=== PATIENT | male | born 1955 | race African-American/Black ===

== ENCOUNTER 2024-09-20 12:29 | Outpatient (REF) | payer MEDICARE, SELFPAY ==
--- OUTSIDE RECORDS SUMMARY | 2023-07-24 05:30 | XMS_ITS ---
Author Organization [facility] Address [address] [facility] [address] [place] [address] Care Team Providers Care Outreach Coordinator Name Role Phone Tameka Dias Primary Care Provide r BEULAH Vizcaino Unavailable [phone] Allergies Allergen (clinical drug ingredient) Drug/Non Drug Allergy documented on EMR Reaction Allergy Type Onset Date Status dulaglutide Trulicity nausea and vomiting Drug Allergy Active REASON FOR VISIT 2wk Medications Medication SIG (Take, Route, Frequency, Duration) Notes Start Date End Date Status Zyban 150mg Active Collagenase 250 UNIT/GM 1 application to ulcer Externally Once a day for 30 days 07/19/2023 Active Cadexomer Iodine 0.9 % apply thin layer Externally once daily to ulceration for 30 days 07/10/2023 Active Glucagon 3 MG/DOSE as directed Nasally Not-Taking Amoxicillin-Pot Clavulanate 875-125 MG 1 tablet Orally every 12 hrs for 10 day(s) 06/30/2023 Not-Taking Voltaren 1 % as directed Transdermal Active B Complex + C TR - as directed Orally Active Glucagon Emergency 1 MG/ML as directed Injection Active Loratadine 10 MG 1 tablet Orally Once a day Active Bioflavonoid Products - as directed Orally Active HYDROmorphone HCl 4 MG 1 tablet as neede d Orally every 6 hrs Active Lidocaine-Prilocaine 2.5-2.5 % as directed Externally Activ e Ketoconazole 2 % 1 application Externally Once a day Active Chlorthalidone 25 MG 1 tablet in the mor nahum with food Orally Once a day Active Senna-Docusate Sodium 8.6-50 MG 1 tablet in the evening as needed Orally Once a day Active Lidocaine 1.8 % 1 patch remove after 12 hours Externally Once a day Active Verapamil HCl ER 240 MG 1 capsule Orally Once a day Active Aspirin 81 MG 1 tablet Orally Once a day Active Atorvastatin Calcium 80 MG 1 tablet Orally Once a day Active Sildenafil Citrate 100 MG 1 tablet as ne eded Orally Once a day Active LORazepam 1 MG 1 tablet at bedtime as needed Orally Once a day Active Alpha Lipoic Acid Ac tive Carvedilol 6.25 MG 1 tablet with food Orally Twice a day Active Lisinopril 40 MG 1 tablet Orally Once a day Active Amitriptyline HCl 25 MG 1 tablet at bedt elmer Orally Once a day Active amLODIPine Besylate 5 MG 1 tablet Orally Once a day Active Lantus SoloStar 100 UNIT/ML as directed Subcutaneous Active Apixaban 5 MG as directed Orally Active Diclofenac Sodium 1 % as directed Transdermal Active Gabapentin 800 MG 1 tablet Orally Once a day Active Fluticasone Propionate 50 MCG/ACT 1 spray in each nostril Nasally Once a day Active Acetaminophen 500 MG 1 tablet as needed Orally every 6 hrs Active HumaLOG KwikPen 100 UNIT/ML as directed Subcutaneous Active Spironolactone 25 MG 1 tablet Orally Active Vital Signs Temperature 97.0 degrees Fahrenheit 07/24/19 24 Heart Rate 78 /min 07/24/2023 Respiratory Rate 16 /min 07/24/2023 Height 68 in 07/24/2023 Encounters Encounter Location Date Provider Diagnosis [facility] [address] [facility] [address] [place] [address] 07/24/2023 BEULAH EGAN Plan Of Treatment No Information Progress Notes * Cj FOXDOB:1955 (68 yo M)Acc No.[id number]:07/24/2023 Progress Note Patient: Cj DICKSON Provider: Suresh Anne DPM :1955 A ge:67 Y S ex:Male Date:07/24/2023 Address:[address] [place] [id number] Pcp:Tameka Gavin in Subjective: * Chief Complaints: * 1 . 2wk. * Medical History: T ype 2 diabetes mellitus with diabetic peripheral angiopathy without gangrene, Type 2 diabetes mellitus with hyperglycemia, Coronary atherosclerosis of unspecified type of vessel, [place] or graft, Hypertension, HOCM (hypertrophic obstructive cardiomyopathy), Peripheral artery disease, Diabetes type 2 with atherosclerosis of arteries of extremities, Type 2 diabetes mellitus with cardiac complication, High cholesterol, Diabetes mellitus type 2, uncontrolled, Diabetic neuropathy, Uncontrolled type 2 diabetes mellitus with hypoglycemia without coma, Esophageal reflux, Erectile dysfunction, Tobacco use disorder, Marijuana smoker, Allergic rhinitis, cause unspecified, Osteoarthritis of left shoulder, COVID vaccinated X 4 ([place]). * Surgical History: R ight below knee amputation 11/2018, left SFA to left medial plantar artery bypass with left common femoral endarterectomy, left leg angiogram 08/2019, Multiple endovascular procedures to both lower extremities . * Hospitalization/Major Diagno stic Procedure: r ight BKA 11/2018, left lower extremity Bypass 08/2019. * Family History: F ather: arthritis. M other: hypertension, arthritis. S iblings: Brother-diabetes.? * Social History: A ctive cigarette smoker 1/4 pack per day, rare alcohol use, denies illicit drug use. Lives with . * Medications: T aking Cadexomer Iodine 0.9 % Gel apply thin layer Externally once daily to ulceration , Taking Collagenase 250 UNIT/GM Ointment 1 application to ulcer Externally Once a day , Taking Zyban , Notes to Pharmacist: 150mg, Taking Spironolactone 25 MG Tablet 1 tablet Orally , Taking HumaLOG KwikPen 100 UNIT/ML Solution Pen-injector as directed Subcutaneous , Taking Acetaminophen 500 MG Tablet 1 tablet as needed Orally every 6 hrs , Taking Fluticasone Propionate 50 MCG/ACT Suspension 1 spray in each nostril Nasally Once a day , Taking Gabapentin 800 MG Tablet 1 tablet Orally Once a day , Taking Diclofenac Sodium 1 % Gel as directed Transdermal , Taking Apixaban 5 MG Tablet as directed Orally , Taking Lantus SoloStar 100 UNIT/ML Solution Pen- injector as directed Subcutaneous , Taking amLODIPine Besylate 5 MG Tablet 1 tablet Orally Once a day , Taking Alpha Lipoic Acid , Taking LORazepam 1 MG Tablet 1 tablet at bedtime as needed Orally Once a day , Taking Amitriptyline HCl 25 MG Tablet 1 tablet at bedtime Orally Once a day , Taking Lisinopril 40 MG Tablet 1 tablet Orally Once a day , Taking Carvedilol 6.25 MG Tablet 1 tablet with food Orally Twice a day , Taking Sildenafil Citrate 100 MG Tablet 1 tablet as needed Orally Once a day , Taking Atorvastatin Calcium 80 MG Tablet 1 tablet Orally Once a day , Taking Aspirin 81 MG Tablet Delayed Release 1 tablet Orally Once a day , Taking Verapamil HCl ER 240 MG Capsule Extended Release 24 Hour 1 capsule Orally Once a day , Taking Lidocaine 1.8 % Patch 1 patch remove after 12 hours Externally Once a day , Taking Ketoconazole 2 % Cream 1 application Externally Once a day , Taking Lidocaine-Prilocaine 2.5-2.5 % Cream as directed Externally , Taking HYDROmorphone HCl 4 MG Tablet 1 tablet as needed Orally every 6 hrs , Taking Senna-Docusate Sodium 8.6-50 MG Tablet 1 tablet in the evening as needed Orally Once a day , Taking Chlorthalidone 25 MG Tablet 1 tablet in the morning with food Orally Once a day , Taking Voltaren 1 % Gel as directed Transdermal , Taking Bioflavonoid Products - Tablet as directed Orally , Taking Loratadine 10 MG Tablet 1 tablet Orally Once a day , Taking Glucagon Emergency 1 MG/ML Solution Reconstituted as directed Injection , Taking B Complex + C TR - Tablet Extended Release as directed Orally , Not-Taking Amoxicillin-Pot Clavulanate 875-125 MG Tablet 1 tablet Orally every 12 hrs , Not-Taking Glucagon 3 MG/DOSE Powder as directed Nasally , Medication List reviewed and reconciled with the patient * Allergies: T rulicity: nausea and vomiting. Objective: * Vitals: H t: 68 in, HR:78/min, Temp:97.0F, RR:16/min, Ht-cm: 172.72. Assessment: Plan: * Treatment: * Billing Information: * Visit Code: * Procedure Codes: * Electronic signature of WHITNEY EGAN D.P.M. on 09/20/2024 at 01:12 PM EDT Sign off status: Pending * Provider: Suresh Anne DPM Date: 07/24/2023 Generated for Ana bragg/Evgeny/Josseline on: 09/20/2024 01:12 PM EDT
== END 2024-09-20 12:30 | disposition home or self-care (01) ==
LOC: HO.SH 12:29
PROVIDERS: Visit Provider Internal Medicine
DX: Z01.118 Encounter for examination of ears and hearing with other abnormal findings (principal); H93.293 Other abnormal auditory perceptions, bilateral
CPT/HCPCS: 92557; 92567

== ENCOUNTER 2025-02-05 11:36 | Outpatient (AMB) | payer MEDICARE, SELFPAY ==
--- OUTSIDE RECORDS SUMMARY | 2023-08-07 06:00 | XMS_ITS ---
Author Organization [facility] Address [address] [facility] [address] [place] [address] Care Team Providers Care Community Marketing Manager Name Role Phone Tameka Dias Primary Care Provide r BEULAH Vizcaino Unavailable [phone] Allergies Allergen (clinical drug ingredient) Drug/Non Drug Allergy documented on EMR Reaction Allergy Type Onset Date Status dulaglutide Trulicity nausea and vomiting Drug Allergy Active REASON FOR VISIT 2wk Medications Medication SIG (Take, Route, Frequency, Duration) Notes Start Date End Date Status B Complex + C TR - as directed Orally Active Cadexomer Iodine 0.9 % apply to left 4th toe ulceration Externally once a day; Duration: 30 days 08/07/2023 Active Amoxicillin-Pot Clavulanate 875-125 MG 1 tablet Orally every 12 hrs; Duration: 10 day(s) 06/30/2023 Not-Taking Glucagon Emergency 1 MG/ML as directed Injection Active Glucagon 3 MG/DOSE as directed Nasally Not-Taking Loratadine 10 MG 1 tablet Orally Once a day Active Voltaren 1 % as directed Transdermal Active Bioflavonoid Products - as directed Orally Active Chlorthalidone 25 MG 1 tablet in the mor nahum with food Orally Once a day Active Senna-Docusate Sodium 8.6-50 MG 1 tablet in the evening as needed Orally Once a day Active Verapamil HCl ER 240 MG 1 capsule Orally Once a day Active Lidocaine 1.8 % 1 patch remove after 12 hours Externally Once a day Active HYDROmorphone HCl 4 MG 1 tablet as neede d Orally every 6 hrs Not-Taking Ketoconazole 2 % 1 application Externally Once a day Active Lidocaine-Prilocaine 2.5-2.5 % as directed Externally Activ e Atorvastatin Calcium 80 MG 1 tablet Orally Once a day Active Aspirin 81 MG 1 tablet Orally Once a day Active Carvedilol 6.25 MG 1 tablet with food Orally Twice a day Active Sildenafil Citrate 100 MG 1 tablet as ne eded Orally Once a day Active Lisinopril 40 MG 1 tablet Orally Once a day Active Amitriptyline HCl 25 MG 1 tablet at bedt elmer Orally Once a day Active Alpha Lipoic Acid Ac tive LORazepam 1 MG 1 tablet at bedtime as needed Orally Once a day Active Lantus SoloStar 100 UNIT/ML as directed Subcutaneous Active amLODIPine Besylate 5 MG 1 tablet Orally Once a day Active Acetaminophen 500 MG 1 tablet as needed Orally every 6 hrs Active Diclofenac Sodium 1 % as directed Transdermal Active Apixaban 5 MG as directed Orally Active Fluticasone Propionate 50 MCG/ACT 1 spray in each nostril Nasally Once a day Active Gabapentin 800 MG 1 tablet Orally Once a day Active Spironolactone 25 MG 1 tablet Orally Active HumaLOG KwikPen 100 UNIT/ML as directed Subcutaneous Active Collagenase 250 UNIT/GM 1 application to ulcer Externally Once a day; Duration: 30 days 07/19/2023 Active Zyban 150mg Active Cadexomer Iodine 0.9 % apply thin layer Externally once daily to ulceration; Duration: 30 days 07/10/2023 Active oxyCODONE HCl 10 MG 1 tablet as needed Orally every 6 hrs Active Vital Signs Temperature 96.9 degrees Fahrenheit 08/07/19 Heart Rate 114 /min 08/07/2023 Respiratory Rate 20 /min 08/07/2023 Height 68 in 08/07/2023 Encounters Encounter Location Date Provider Diagnosis [facility] [address] [facility] [address] [place] [address] 08/07/2023 BEULAH EGAN 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 He presents today with a very tender ulceration to the lateral aspect of the left 4th PIPJ. This likely occured due to the pressure of the 5th toe abutting the 4th toe in the presence of edema and significant peripheral vascular disease. I took cultures of the ulceration today. The site was cleansed and betadine was applied along with betadine gauze padding to separate the toes and protect the ulceration. I advise that his use betadine and gauze daily. I placed him into a post-op shoe to decrease motion at the toes. I also started him on augmentin BID for the next 10 days. I did advise that I may have to change the antibiotic depending on the culture results. I will see him back in the office in two weeks or sooner if needed. I encouraged him to call if he has any questions or concerns. 08/07/2023 Peripheral arterial occlusive disease (ICD-10 - I77.9) 08/07/2023 Type 2 diabetes with complication (ICD-10 - E11.8) Plan Of Treatment Medication Medication Name Sig Start Date Stop Date Notes Cadexomer Iodine 0.9 % apply to left 4th toe ulceration Externally once a day; Duration: 30 days 08/07/2023 Treatment Notes Assessment Notes Pressure injury of toe of le foot, stage 3 Patient examined and evaluated. He prese nts today with a very tender ulceration to the lateral aspect of the left 4th PIPJ. This likely occured due to the pressure of the 5th toe abutting the 4th toe in the presence of edema and significant peripheral vascular disease. I took cultures of the ulceration today. The site was cleansed and betadine was applied along with betadine gauze padding to separate the toes and protect the ulceration. I advise that his use betadine and gauze daily. I placed him into a post-op shoe to decrease motion at the toes. I also started him on augmentin BID for the next 10 days. I did advise that I may have to change the antibiotic depending on the culture results. I will see him back in the office in two weeks or sooner if needed. I encouraged him to call if he has any questions or concerns. Progress Notes * Angel FOXrichardDOB:1955 (69 yo M)Acc No.[id number]:08/07/2023 Progress Note Patient: Cj DICKSON Provider: Suresh Anne DPM :1955 A ge:67 Y S ex:Male Date:08/07/2023 Address:[address] [place] [address], [id number] Pcp:Tameka Gavin in Subjective: * Chief Complaints: * 1 . 2wk. * Medical History: T ype 2 diabetes mellitus with diabetic peripheral angiopathy without gangrene, Type 2 diabetes mellitus with hyperglycemia, Coronary atherosclerosis of unspecified type of vessel, [place] or graft, Hypertension, HOCM (hypertrophic obstructive cardiomyopathy), [...] of left shoulder, COVID vaccinated X 4 ([employer]). * Surgical History: R ight below knee [...] Lives with . * Medications: T aking oxyCODONE HCl 10 MG Tablet 1 tablet as needed Orally every 6 hrs , Taking Cadexomer Iodine 0.9 % Gel apply thin [...] % Cream as directed Externally , Taking Senna-Docusate Sodium 8.6-50 MG Tablet [...] Extended Release as directed Orally , Not-Taking HYDROmorphone HCl 4 MG Tablet 1 tablet as needed Orally every 6 hrs , Not-Taking Amoxicillin-Pot Clavulanate 875-125 MG Tablet 1 tablet Orally every 12 hrs , Not-Taking Glucagon 3 MG/DOSE Powder as directed Nasally , Medication List reviewed and reconciled with the patient * Allergies: T rulicity: nausea and vomiting. Objective: * Vitals: H t: 68 in, HR:114/min, Temp:96.9F, RR:20/min, Ht-cm: 172.72. Assessment: * Assessment: 1. P ressure injury of toe of left foot, stage 3 - L89.893 (Primary) 2 . P eripheral arterial occlusive disease - I77.9 3 . T ype 2 diabetes with complication - E11.8 Plan: * Treatment: * Billing Information: * Visit Code: * Procedure Codes: * Electronic signature of WHITNEY EGAN D.P.M. on 02/05/2025 at 02:28 PM EST Sign off status: Pending * Provider: Suresh Anne DPM Date: 0 08/07/2023 Generated for Ana bragg/Evgeny/Josseline on: 1 04/07/2024 02:28 PM EST
--- OUTSIDE RECORDS SUMMARY | 2023-08-28 08:00 | XMS_ITS ---
Author Organization [facility] Address [address] [facility] [address] [place] [address] Care Team Providers Care Director Of Business Development Name Role Phone Tameka Dias Primary Care Provide r BEULAH Vizcaino Unavailable [phone] Allergies Allergen (clinical drug ingredient) Drug/Non Drug Allergy documented on EMR Reaction Allergy Type Onset Date Status dulaglutide Trulicity nausea and vomiting Drug Allergy Active REASON FOR VISIT 2wk Medications Medication SIG (Take, Route, Frequency, Duration) Notes Start Date End Date Status Gabapentin 800 MG 1 tablet Orally Once a day Active Fluticasone Propionate 50 MCG/ACT 1 spray in each nostril Nasally Once a day Active Acetaminophen 500 MG 1 tablet as needed Orally every 6 hrs Active HumaLOG KwikPen 100 UNIT/ML as directed Subcutaneous Active Spironolactone 25 MG 1 tablet Orally Active Zyban 150mg Active Collagenase 250 UNIT/GM 1 application to ulcer Externally Once a day; Duration: 30 days 07/19/2023 Active Cadexomer Iodine 0.9 % apply thin layer Externally once daily to ulceration; Duration: 30 days 07/10/2023 Active oxyCODONE HCl 10 MG 1 tablet as needed Orally every 6 hrs Active Glucagon 3 MG/DOSE as directed Nasally Not-Taking oxyCODONE HCl 10 MG 1 tablet as needed for severe pain Orally every 4 hrs; Duration: 5 days partial fill allowed upon request of the patient 08/24/2023 Not-Taking oxyCODONE HCl 10 MG 1 tablet as needed Orally every 4 hours; Duration: 5 days partial fill allowed upon request of the patient 08/11/2023 Not-Taking Cadexomer Iodine 0.9 % apply to left 4th toe ulceration Externally once a day; Duration: 30 days 08/07/2023 Active Amoxicillin-Pot Clavulanate 875-125 MG 1 tablet Orally every 12 hrs; Duration: 10 day(s) 06/30/2023 Not-Taking HYDROmorphone HCl 4 MG 1 tablet as needed Orally every 6 hrs Not-Taking B Complex + C TR - as directed Orally Active Glucagon Emergency 1 MG/ML as directed Injection Active Loratadine 10 MG 1 tablet Orally Once a day Active Bioflavonoid Products - as directed Orally Active Voltaren 1 % as directed Transdermal Active Chlorthalidone 25 MG 1 tablet in the morning with food Orally Once a day Active Senna-Docusate Sodium 8.6-50 MG 1 tablet in the evening as needed Orally Once a day Active Lidocaine-Prilocaine 2.5-2.5 % as directed Externally Active Ketoconazole 2 % 1 application Externally Once a day Active Lidocaine 1.8 % 1 patch remove after 12 hours Externally Once a day Active Sildenafil Citrate 100 MG 1 tablet as needed Orally Once a day Active Carvedilol 6.25 MG 1 tablet with food Orally Twice a day Active Verapamil HCl ER 240 MG 1 capsule Orally Once a day Active Aspirin 81 MG 1 tablet Orally Once a day Active Atorvastatin Calcium 80 MG 1 tablet Orally Once a day Active Lisinopril 40 MG 1 tablet Orally Once a day Active Amitriptyline HCl 25 MG 1 tablet at bedtime Orally Once a day Active LORazepam 1 MG 1 tablet at bedtime as needed Orally Once a day Active Alpha Lipoic Acid Ac tive amLODIPine Besylate 5 MG 1 tablet Orally Once a day Active Lantus SoloStar 100 UNIT/ML as directed Subcutaneous Active Apixaban 5 MG as directed Orally Active Diclofenac Sodium 1 % as directed Transdermal Active Vital Signs Temperature 96.2 degrees Fahrenheit 08/28/19 24 Heart Rate 102 /min 08/28/2023 Respiratory Rate 16 /min 08/28/2023 Height 68 in 08/28/2023 Weight 174.0 lbs 08/28/2023 BMI 26.45 kg/m2 08/28/2023 Encounters Encounter Location Date Provider Diagnosis [facility] [address] [facility] [address] [place] [address] 08/28/2023 BEULAH EGAN Plan Of Treatment No Information Progress Notes * Yolanda FOX:1955 (69 yo M)Acc No.[id number]:08/28/2023 Progress Note Patient: Cj DICKSON Provider: Suresh Anne DPM :1955 A ge:67 Y S ex:Male Date:08/28/2023 Address:[address] [place], [place] [id number] Pcp:Tameka Gavin in Subjective: * Chief Complaints: * 1 . 2wk. * Medical History: T ype 2 diabetes mellitus with diabetic peripheral angiopathy without gangrene, Type 2 diabetes mellitus with hyperglycemia, Coronary atherosclerosis of unspecified type of vessel, [place] or graft, Hypertension, HOCM (hypertrophic obstructive cardiomyopathy), [...] of left shoulder, COVID vaccinated X 4 ([employer]). * Surgical History: R ight below knee [...] Tablet Extended Release as directed Orally , Taking Cadexomer Iodine 0.9 % Gel apply to left 4th toe ulceration Externally once a day , Not-Taking oxyCODONE HCl 10 MG Tablet 1 tablet as needed Orally every 4 hours , Notes to Pharmacist: partial fill allowed upon request of the patient, Not-Taking oxyCODONE HCl 10 MG Tablet 1 tablet as needed for severe pain Orally every 4 hrs , Notes to Pharmacist: partial fill allowed upon request of the patient, Not-Taking HYDROmorphone HCl 4 MG Tablet 1 tablet as needed Orally every 6 hrs , Not-Taking Amoxicillin-Pot Clavulanate 875-125 MG Tablet 1 tablet Orally every 12 hrs , Not-Taking Glucagon 3 MG/DOSE Powder as directed Nasally , Medication List reviewed and reconciled with the patient * Allergies: T rulicity: nausea and vomiting. Objective: * Vitals: W t:174.0lbs, Ht: 68 in, BMI:26.45Index, HR:102/min, Temp:96.2F, RR:16/min, Ht-cm: 172.72, Wt-k.93 kg. Assessment: Plan: * Treatment: * Billing Information: * Visit Code: * Procedure Codes: * Electronic signature of WHITNEY EGAN D.P.M. on 02/05/2025 at 02:28 PM EST Sign off status: Pending * Provider: Suresh Anne DPJoseph Date: 0 08/28/2023 Generated for Ana bragg/Evgeny/Josseline on: 1 04/07/2024 02:28 PM EST
--- OUTSIDE RECORDS SUMMARY | 2025-01-31 23:59 | XMS_ITS | Continuity of Care Document ---
Author Organization [facility] Address [address] [place] [id number] Care Team Providers Care Anthropology Department Chair Name Role Phone Jean-Paul Serrato MD, Tameka Primary Care Phys [facility] [address] Encounter [facility] [place] Date(s): 01/01/25 - 01/31/25 [facility] [address], [place] [address] Encounter Type: Triage Allergies, Adverse Reactions, Alerts Substance Criticality Severity Reaction Reaction Severity Status mirtazapine Vomiting, fever , chills, diarrhea, headache, insomnia Active Trulicity Pen severe nausea and vomiting Active Immunizations Given and Recorded Vaccine Date Status Refusal Reason influenza virus vaccine, inactivated 03/23/22 Calvin rded influenza virus vaccine, inactivated 12/07/20 Calvin rded influenza virus vaccine, inactivated 12/27/19 Calvin rded influenza virus vaccine, inactivated 02/10/19 Calvin rded influenza virus vaccine, inactivated 02/07/18 Calvin rded influenza virus vaccine, inactivated 12/21/15 Calvin rded influenza virus vaccine, inactivated 12/17/14 Calvin rded influenza virus vaccine, inactivated 02/06/14 Calvin rded influenza virus vaccine, inactivated 12/04/12 Calivn rded influenza virus vaccine, inactivated 12/14/11 Calvin rded influenza virus vaccine, inactivated 01/14/11 Calvin rded influenza virus vaccine, inactivated 01/09/10 Calvin rded influenza virus vaccine, inactivated 12/13/08 Calvin rded influenza virus vaccine, inactivated 01/10/07 Calvin rded influenza virus vaccine, inactivated 02/19/06 Calvin rded influenza virus vaccine, inactivated 01/12/05 Calvin rded [id number] 12y+ bivalent booster vax 03/23/22 Recorded SARS-CoV-2 mRNA ([id number]) vax 08/04/21 Recorded SARS-CoV-2 (COVID-19) mRNA BNT-162b2 vac 01/07/21 Recorded SARS-CoV-2 (COVID-19) mRNA BNT-162b2 vac 05/26/20 Recorded SARS-CoV-2 (COVID-19) mRNA BNT-162b2 vac 05/05/20 Recorded pneumococcal 13-valent vaccine 12/27/19 Recorded pneumococcal 23-valent vaccine 02/06/14 Recorded pneumococcal 23-valent vaccine 01/14/11 Recorded tetanus/diphtheria/pertussis, acel(Tdap) 07/20/12 Recorded Medications acetaminophen 500 mg oral tablet 1 tablet = 500 mg, By Mouth, Every 6 hours, PRN as needed for pain, 0 Refills, Maintenance, 02/11/24 8:48:00 AM EST, Tablet, Partial fill upon patient request if the prescription is for a schedule IIopioid drug. Start Date: 02/11/24 Status: Ordered Medication Dispense Status: Completed Total Allowed Fills: 1 Fills Dispensed: 0 Alpha Lipoic Acid 600 mg oral capsule 1 capsule = 600 mg, By Mouth, 2 times a day, 0 Refills, 11/16/23 10:00:00 AM EDT, Partial fill upon patient request if the prescription is for a schedule II opioid drug. Start Date: 11/16/23 Status: Ordered Medication Dispense Status: Completed Total Allowed Fills: 1 Fills Dispensed: 0 amitriptyline 25 mg oral tablet 25 mg, 1, tablet, By Mouth, Daily at bedtime, Refills 0, Maintenance, 07/26/19 2:39:00 PM EDT Start Date: 07/26/19 Status: Ordered Medication Dispense Status: Completed Total Allowed Fills: 1 Fills Dispensed: 0 amLODIPine 5 mg oral tablet 5 mg, 1, tablet, By Mouth, Daily, Refills 0, Maintenance, 07/26/19 2:39:00 PM EDT Start Date: 07/26/19 Status: Ordered Medication Dispense Status: Completed Total Allowed Fills: 1 Fills Dispensed: 0 Aspirin Low Dose 81 mg oral delayed release tablet 2 tablet = 162 mg, By Mouth, Daily, 0 Refills, 11/16/23 10:00:00 AM EDT, Partial fill upon patient request if the prescription is for a schedule II opioid drug. Start Date: 11/16/23 Status: Ordered Medication Dispense Status: Completed Total Allowed Fills: 1 Fills Dispensed: 0 atorvastatin 80 mg oral tablet 1 tablet = 80 mg, By Mouth, Daily Start Date: 12/26/18 Status: Ordered Medication Dispense Status: Completed Total Allowed Fills: 1 Fills Dispensed: 0 carvedilol 6.25 mg oral tablet 6.25 mg, 1, tablet, By Mouth, 2 times a day, with food, Refills 0, 10/11/23 2:54:00 PM EDT, Partial fill upon patient request if the prescription is for a schedule II opioid drug. Start Date: 10/11/23 Status: Ordered Medication Dispense Status: Completed Total Allowed Fills: 1 Fills Dispensed: 0 chlorthalidone 50 mg oral tablet 1 tablet = 50 mg, By Mouth, Daily, 0 Refills, 10/11/23 2:54:00 PM EDT, Partial fill upon patient request if the prescription is for a schedule II opioid drug. Start Date: 10/11/23 Status: Ordered Medication Dispense Status: Completed Total Allowed Fills: 1 Fills Dispensed: 0 DEXCOM G6 SENSOR MISC Miscellaneous DEXCOM G6 SENSOR MISC Miscellaneous, See Instructions, # 3 Unknown, 12 Refills, Maintenance, USE TOMONITOR BLOOD GLUCOSE CONTINUOUSLY, CHANGE SENSOR EVERY 10 DAYS, 08/12/24 10:11:00 AM EDT, 173, cm, 06/19/24 15:50:00 EDT, Height, 60.5, kg, 02/18/24 18:11:00 EST, Dry Weight Start Date: 08/12/24 Status: Ordered Medication Dispense Status: Completed Quantity: 3.0 Unit: Unknown Total Allowed Fills: 1 Fills Dispensed: 0 DEXCOM G6 TRANSMITTER MISC Miscellaneous DEXCOM G6 TRANSMITTER MISC Miscellaneous, See Instructions, # 1 Unknown, 4 Refills, Maintenance, USE TO MONITOR BLOOD GLUCOSE CONTINUOUSLY, CHANGE EVERY 90 DAYS, 08/12/24 10:11:00 AM EDT, 173, cm, 06/19/24 15:50:00 EDT, Height, 60.5, kg, 02/18/24 18:11:00 EST, Dry Weight Start Date: 08/12/24 Status: Ordered Medication Dispense Status: Completed Quantity: 1.0 Unit: Unknown Total Allowed Fills: 1 Fills Dispensed: 0 diclofenac 1% topical gel = 1 Gm, Topically, 2 times a day, 0 Refills, 11/16/23 10:00:00 AM EDT, Partial fill upon patient request if the prescription is for a schedule II opioid drug. Start Date: 11/16/23 Status: Ordered Medication Dispense Status: Completed Total Allowed Fills: 1 Fills Dispensed: 0 docusate sodium 100 mg oral capsule 1 capsule, By Mouth, 2 times a day, # 60 capsule, 1 Refills, Maintenance, 06/27/22 8:35:00 AM EDT, [facility] [id number], 172, cm, 05/25/22 13:33:00 EST, Height, 74, kg, 07/26/21 9:52:00 EDT, Dry Weight Start Date: 06/27/22 Status: Ordered Medication Dispense Status: Completed Quantity: 60.0 Unit: capsule Total Allowed Fills: 1 Fills Dispensed: 0 Eliquis 5 mg oral tablet 1 tablet = 5 mg, By Mouth, 2 times a day, # 60 tablet, 5 Refills, Maintenance, 10/18/24 10:32:00 PM EDT, Tablet, Partial fill upon patient request if the prescription is for a schedule II opioid drug. Start Date: 10/18/24 Status: Ordered Medication Dispense Status: Completed Quantity: 60.0 Unit: tablet Total Allowed Fills: 1 Fills Dispensed: 0 famotidine 20 mg oral tablet 20 mg, 1, tablet, By Mouth, 2 times a day, Refills 0, 10/11/23 2:54:00 PM EDT, Partial fill upon patient request if the prescription is for a schedule II opioid drug. Start Date: 10/11/23 Status: Ordered Medication Dispense Status: Completed Total Allowed Fills: 1 Fills Dispensed: 0 fentaNYL 25 mcg/hr transdermal film, extended release 1 patch, Topically, Every 72 hours, # 5 patch, 0 Refills, Maintenance, 01/30/25 11:51:00 AM EST, Patch, [facility]/pharmacy #[id number], Partial fill upon patient request if the prescription is for a schedule II opioid drug., 172.7, cm, 12/11/24 8:16:00 EDT, Height, 60, kg, 10/18/24 22:27:00 EDT, Dry Weight Start Date: 01/30/25 Stop Date: 02/14/25 Status: Ordered Medication Dispense Status: Completed Quantity: 5.0 Unit: patch Total Allowed Fills: 1 Fills Dispensed: 0 ferrous sulfate 325 mg oral tablet 1 tablet = 325 mg, By Mouth, Daily, 0 Refills, 09/27/23 2:55:00 PM EDT, Partial fill upon patient request if the prescription is for a schedule II opioid drug. Start Date: 09/27/23 Status: Ordered Medication Dispense Status: Completed Total Allowed Fills: 1 Fills Dispensed: 0 fluticasone 50 mcg/inh nasal spray 2 sprays, Nares, Both, 2 times a day, PRN as needed, 0 Refills, Maintenance, 05/29/15 12:31:03 PM EST, [place] Start Date: 05/29/15 Status: Ordered Medication Dispense Status: Completed Total Allowed Fills: 1 Fills Dispensed: 0 gabapentin 800 mg oral tablet 1 tablet = 800 mg, By Mouth, 3 times a day, 0 Refills, 09/27/23 2:55:00 PM EDT, Partial fill upon patient request if the prescription is for a schedule II opioid drug. Start Date: 09/27/23 Status: Ordered Medication Dispense Status: Completed Total Allowed Fills: 1 Fills Dispensed: 0 Glucagon 1 mg/0.2 mL subcutaneous solution 0.2 mL = 1 mg, Subcutaneous Injection, Once, PRN as needed, 0 Refills, Maintenance, 07/26/19 2:45:00 PM EDT, Solution Start Date: 07/26/19 Status: Ordered Medication Dispense Status: Completed Total Allowed Fills: 1 Fills Dispensed: 0 Humalog Kwik Pen 100 units/mL subcutaneous injection See Instructions, Humalog correction insulin: If your sugar is >180, take 1 units of insulin If your sugar is >230, take 2 units of insulin If your sugar is >280, take 3 units of insulin e11.9 MDD: 10 units, # 15 mL, 3 Refills, Maintenance, 05/29/24 12:23:00 PM EST, [facility]/pharmacy #[id number], Partial fill upon patient request if the prescription is for a schedule II opioid drug., 173, cm, 05/29/24 11:33:00 EST, Height, 60.5, kg, 02/18/24 18:11:00 EST, Dry Weight Start Date: 05/29/24 Status: Ordered Medication Dispense Status: Completed Quantity: 15.0 Unit: mL Total Allowed Fills: 4 Fills Dispensed: 0 Indications: Type 2 diabetes mellitus without complications; Lantus Solostar Pen 100 units/mL subcutaneous solution = 30 units, Subcutaneous Infusion, Daily, E11.9, # 15 mL, 3 Refills, Maintenance, 05/29/24 12:22:00 PM EST, [facility]/pharmacy #[id number], Partial fill upon patient request if the prescription is for a schedule II opioid drug., 173, cm, 05/29/24 11:33:00 EST, Height, 60.5, kg, 02/18/24 18:11:00 EST, Dry Weight Start Date: 05/29/24 Status: Ordered Medication Dispense Status: Completed Quantity: 15.0 Unit: mL Total Allowed Fills: 4 Fills Dispensed: 0 Indications: Type 2 diabetes mellitus without complications; lisinopril 40 mg oral tablet 1 tablet = 40 mg, By Mouth, Daily, 0 Refills, Maintenance, 03/04/10 2:17:33 PM EST Start Date: 03/04/10 Status: Ordered Medication Dispense Status: Completed Total Allowed Fills: 1 Fills Dispensed: 0 loratadine 10 mg oral tablet 10 mg, 1, tablet, By Mouth, Daily, # 30 tablet, Refills 0, Maintenance, 10/18/24 10:42:00 PM EDT, Partial fill upon patient request if the prescription is for a schedule II opioid drug. Start Date: 10/18/24 Status: Ordered Medication Dispense Status: Completed Quantity: 30.0 Unit: tablet Total Allowed Fills: 1 Fills Dispensed: 0 MetFORMIN (Eqv-Fortamet) 500 mg oral tablet, extended release 1 tablet = 500 mg, By Mouth, Daily, 0 Refills, Maintenance, 10/18/24 10:43:00 PM EDT, Partial fill upon patient request if the prescription is for a schedule II opioid drug. Start Date: 10/18/24 Status: Ordered Medication Dispense Status: Completed Total Allowed Fills: 1 Fills Dispensed: 0 ondansetron 4 mg oral tablet, disintegrating 1 tablet = 4 mg, By Mouth, Every 8 hours, PRN as needed for nausea/vomiting, # 30 tablet, 0 Refills, Maintenance, 02/13/24 9:46:00 AM EST, DIS Tablet, [facility], Partial fill upon patient request if the prescription is for a schedule II opioid drug., 174, cm, 02/13/24 6:11:00 EST, Height, 62.3, kg, 02/10/24 16:23:00 EST, Dry Weight Start Date: 02/13/24 Status: Ordered Medication Dispense Status: Completed Quantity: 30.0 Unit: tablet Total Allowed Fills: 1 Fills Dispensed: 0 oxyCODONE 20 mg oral tablet 1 tablet = 20 mg, By Mouth, Every 6 hours, PRN Pain , Severe, # 120 tablet, 0 Refills, Maintenance,12/04/24 2:17:00 PM EDT, Tablet, [facility]/pharmacy #[id number], Partial fill upon patient request if the prescription is for a schedule II opioid drug., 172.7, cm, 10/21/24 6:21:00 EDT, Height, 60, kg, 10/18/24 22:27:00 EDT, Dry Weight Start Date: 12/04/24 Stop Date: 01/03/25 Status: Ordered Medication Dispense Status: Completed Quantity: 120.0 Unit: tablet Total Allowed Fills: 1 Fills Dispensed: 0 oxyCODONE 20 mg oral tablet 1 tablet = 20 mg, By Mouth, Every 6 hours, PRN Pain , Severe, # 120 tablet, 0 Refills, Maintenance,01/09/25 2:43:00 PM EDT, Tablet, [facility], Partial fill upon patient request if theprescription is for a schedule II opioid drug., 172.7, cm, 12/11/24 8:16:00 EDT, Height, 60, kg, 10/18/24 22:27:00 EDT, Dry Weight Start Date: 01/09/25 Stop Date: 02/08/25 Status: Ordered Medication Dispense Status: Completed Quantity: 120.0 Unit: tablet Total Allowed Fills: 1 Fills Dispensed: 0 oxyCODONE 30 mg IR tablet 1 tablet = 30 mg, By Mouth, Daily at bedtime, PRN Pain , Severe, # 14 tablet, 0 Refills, Maintenance, 01/31/25 10:05:00 AM EST, Tablet, [facility]/pharmacy #[id number], Partial fill upon patient request if the prescription is for a schedule II opioid drug., 172.7, cm, 12/11/24 8:16:00 EDT, Height, 60, kg, 10/18/24 22:27:00 EDT, Dry Weight Start Date: 01/31/25 Stop Date: 02/14/25 Status: Ordered Medication Dispense Status: Completed Quantity: 14.0 Unit: tablet Total Allowed Fills: 1 Fills Dispensed: 0 pantoprazole 40 mg oral delayed release tablet 1 tablet = 40 mg, By Mouth, Daily, # 30 tablet, 0 Refills, Maintenance, 02/21/24 3:37:00 PM EST, [facility], 173, cm, 02/18/24 18:11:00 EST, Height, 60.5, kg, 02/18/24 18:11:00 EST, Dry Weight Start Date: 02/21/24 Stop Date: 03/22/24 Status: Ordered Medication Dispense Status: Completed Quantity: 30.0 Unit: tablet Total Allowed Fills: 1 Fills Dispensed: 0 Pen [place], 31 G x 5 mm BD Ultra Fine III See Instructions, # 400 each, Refills 3, Tot. Refills 3, Maintenance, Use up to 4 times per day forinsulin injection. E11.9 90 day supply, 05/29/24 12:25:00 PM EST, 400 quantity for 3 months supplies,or less quantity as per insurance requirement. can switch to other brand as per patient request., Supply, 173, cm, 05/29/24 11:33:00 EST, Height, 60.5, kg, 02/18/24 18:11:00 EST, Dry Weight Start Date: 05/29/24 Stop Date: 05/24/25 Status: Ordered Medication Dispense Status: Completed Quantity: 400.0 Unit: each Total Allowed Fills: 4 Fills Dispensed: 0 Physical therapy Physical therapy, See Instructions, # 1 each, Refills 0, Tot. Refills 0, Maintenance, At home physcial therapy evaluation and treatment Dx: bilateral BKA and right hip fracture, 12/11/24 8:43:00 AM EDT, Supply Start Date: 12/11/24 Status: Ordered Medication Dispense Status: Completed Quantity: 1.0 Unit: each Total Allowed Fills: 1 Fills Dispensed: 0 sildenafil 100 mg oral tablet 1 tablet = 100 mg, By Mouth, Daily, 1 hour before sexual activity, # 5 tablet, 0 Refills, Maintenance, 10/18/24 10:44:00 PM EDT, Tablet, Partial fill upon patient request if the prescription is for a schedule II opioid drug. Start Date: 10/18/24 Status: Ordered Medication Dispense Status: Completed Quantity: 5.0 Unit: tablet Total Allowed Fills: 1 Fills Dispensed: 0 spironolactone 25 mg oral tablet 25 mg, 1, tablet, By Mouth, 2 times a day, Refills 0, Maintenance, 06/21/18 10:15:23 AM EDT Start Date: 06/21/18 Status: Ordered Medication Dispense Status: Completed Total Allowed Fills: 1 Fills Dispensed: 0 Super B Complex 1 tablet, By Mouth, Daily, Maintenance, 02/11/24 9:03:00 AM EST, Partial fill upon patient request if the prescription is for a schedule II opioid drug. Start Date: 02/11/24 Status: Ordered Medication Dispense Status: Completed Total Allowed Fills: 1 Fills Dispensed: 0 varenicline 0.5 mg tablet 1 tablet, By Mouth, Daily, # 90 tablet, 0 Refills, Maintenance, 01/27/25 3:25:00 PM EST, [id number], 172.7, cm, 12/11/24 8:16:00 EDT, Height, 60, kg, 10/18/24 22:27:00 EDT, Dry Weight Start Date: 01/27/25 Status: Ordered Medication Dispense Status: Completed Quantity: 90.0 Unit: tablet Total Allowed Fills: 1 Fills Dispensed: 0 venlafaxine 37.5 mg oral capsule, extended release 0 Refills, Maintenance, 12/11/24 8:17:00 AM EDT, Partial fill upon patient request if the prescription is for a schedule II opioid drug. Start Date: 12/11/24 Status: Ordered Medication Dispense Status: Completed Total Allowed Fills: 1 Fills Dispensed: 0 verapamil 240 mg/12 hours oral tablet, extended release 1 tablet = 240 mg, By Mouth, Daily, PRN Headache, 0 Refills, 11/16/23 10:00:00 AM EDT, Partial fill upon patient request if the prescription is for a schedule II opioid drug. Start Date: 11/16/23 Status: Ordered Medication Dispense Status: Completed Total Allowed Fills: 1 Fills Dispensed: 0 Problem List Condition Confirmation Course Effective Dates Status Health St atus Informant Carpal tunnel syndrome on right Confirmed Active Cigarette smoker Confirmed Active Gangrene of toe of left foot Confirmed Active GERD (gastroesophageal reflux disease) Confirmed Active S/P bilateral BKA (below knee amputation) Confirmed Active Cardiomyopathy, hypertrophic w/severe asymmetric septal hypertrophy Confirmed 07/03/13 Active ED (erectile dysfunction) Confirmed Active Pain Confirmed Active PAF (paroxysmal atrial fibrillation) Confirmed Active PVD (peripheral vascular disease) Confirmed Active Post-operative pain Confirmed Active Tobacco use disorder, continuous Confirmed Active Tobacco use disorder Confirmed Active Diabetes mellitus, type II, insulin Confirmed Active Social History Social History Type Response Smoking Status 5-9 cigarettes (betw een 1/4 to 1/2 pack)/day in last 30 days; Type: Cigarettes entered on: 07/12/21 Sex Sex Representation Male (finding) Patient Care team information Care Team Personnel Name: Verónica Kyle RN Position: [facility] RN Member Role: Primary Care Nurse Name: Reyes Ferrer Position: [facility] Outreach Member Role: Lifetime Consulting Physician Name: Tameka Singh RN Position: [facility] SN RN Member Role: Primary Care Nurse Name: Pankaj Edgar RN Position: S RN Member Role: Primary Care Nurse Name: Dayan Lamb Position: [facility] Outreach Member Role: Lifetime Consulting Physician Name: Won Gibbs RN Position: S RN Member Role: Primary Care Nurse Name: Nevaeh Gates RN Position: S RN Member Role: Primary Care Nurse Name: Sabrina Henderson RN, I Position: S RN Member Role: Primary Care Nurse Name: Tameka Rodríguez MD Position: Reference Physician Member Role: PCP Address: [address] [place] [address] Medical [facility] [address] Telecom: Name: Pretty Ward RN Position: [facility] RN Member Role: Primary Care Nurse Name: Billie Elizabeth RN Position: [facility] RN Member Role: Primary Care Nurse Name: Cierra Ramirez RN Position: [facility] RN Member Role: Primary Care Nurse Name: Latonya Eid RN Position: [facility] RN Member Role: Primary Care Nurse Name: Yi De RN Position: [facility] RN Member Role: Primary Care Nurse Name: Victoria Miller RN Position: [facility] RN Member Role: Primary Care Nurse Name: Karla Cortez RN Position: [facility] RN Member Role: Primary Care Nurse Care Team Related Persons Name: VERONICA GARAY Name: RICHI GARAY Insurance Providers Guarantor name: BRADY GARAY Health Plan Information #: 1 Payer: [employer] Payer Identifier: MARIJA Member Number: [id number] Group Number: [id number] Subscriber Identifier: MARIJA Relationship to Subscriber: self Coverage Type: Medicare HMO Coverage Verification Date: NA Telecom: NA Address: NA Health Plan Information #: 2 [facility] [employer] Payer Identifier: MARIJA Member Number: [id number] Group Number: [id number] Subscriber Identifier: NA Relationship to Subscriber: self Coverage Type: MEDICAID Coverage Verification Date: NA Telecom: NA Address:
--- NOTE | 2025-02-05 11:41 | MHC.AMNUTRGE ---
VS Expanded 02/05/25 12:39 02/12/25 14:12 Height 5 ft 8.5 in 5 ft 8.5 in Weight 139 lb 8.842 oz 140 lb BMI 20.9 21.0 Intake Visit Reasons: T2DM Allergies dulaglutide Adverse Reaction (Unknown, Verified 02/12/25 14:21) Vomiting Medication List - Last Reconciled 02/12/[address], LDN B-complex with vitamin C 1 tab PO DAILY insulin glargine (Lantus Solostar U-100 Insulin) 45 units subcut QAM insulin lispro (Humalog KwikPen (U-100) Insulin) 1 sliding scale dose subcut USEASDIRECTD metformin ER (Glucophage XR) 500 mg PO DAILY Nutrition Presentation Details: Pt presents for MNT for T2DM Pt has hx of gastroparesis, PAD, bilateral below knee amputation Pt reports he is learning how to use an insulin pump, currently not on the pump but on MDI Pt has difficulties with sharing glucose sensor information -and wants to change email address- Pt was advised to call sensor admin for further instructions. Has multiple questions regarding diet for gastroparesis. B: hot cereal or sand or bologna sand , milk L: may skip or have chicken noodle soup dinner: potato and beef, water or juice snack: banana or crackers, chips Pt reports assists with meal preparation. Pt reports moving around as much as possible at home denies constipation/diarrhea IAW-Ycxbxii-Tl.Jeor Equation Height: 5 ft 8.5 in Weight: 140 lb Resting Metabolic Rate: 1397.19 Calculated Activity Level: Sedentary Calories Needed to Maintain Weight: 1676.63 Diagnosis Nutrition problem #1: food nutri know defi As related to (etiology) #1: diagnosis As evidenced by (sign/symptom) #1: knowledge deficit of diet Monitoring/Goals Nutrition problem monitoring: level of knowledge/skill, glucose, fasting and total CHO intake Nutrition goal/outcome: list 3 CHO foods Outcome progress: verbalized understanding [facility] Medical History (Updated 02/12/25 @ 14:[address], LDN) PVD (peripheral vascular disease) Gastroparesis diabeticorum Diabetic neuropathy Asthma Below-knee amputation of both lower extremities Assessment & Plan Assessment & Plan (1) Diabetes mellitus with gastroparesis: Code(s): E11.43 - Type 2 diabetes mellitus with diabetic autonomic (poly)neuropathy Category: Medical Plan: Estimated ideal body weight 138 lb for bilateral below-knee amputation current wt: 64kg ( 02/18 ) est kcal needs as per MSJ: 9720-4224 est protein needs as per 1 g/kg BW: 60 est fluid needs as per 30 ml/kg BW: 1900 Recommended fiber > 12 g /day and gradually increase up to 25-28 g /day or as tolerated Recommended sodium intake less than 2300 mg per day unless otherwise specified by the doctor Nutrition topics discussed : Reviewed (R), Pt verbalized understanding (V) , not applicable (N/A) R, V, N/A : Healthy Plate Method Concept: R, V, N/A: Carbohydrates: food sources of carbohydrates, relationship of carbohydrates to blood glucose, fatty liver GI health. Recommended total amount of carbohydrates per meals and snack. Differences between simple carbohydrates and complex carbohydrates R, : Lean protein foods including vegan , vegetarian sources of protein. Benefits of protein (including but not limited to healing, nutritional value , benefits in weight loss, glucose control . Reviewed low-fat food options and is relationship to gastroparesis R, : Fats : Source of fats, benefits of fats. Difference between saturated and unsaturated fats. Saturated fats and its contribution to inflammation. Reviewed low-fat food and is relationship to gastroparesis R, V, N/A: Fiber: food sources and role of fiber in the diet (including but not limited to its role as a prebiotic, benefits in constipation, role in IBS , role in glucose control and cholesterol level) R, : Hydration: role of hydration and prevention of dehydration or over hydration. Foods and water content. R, V, N/A: Vitamins and Minerals in foods and supplements R, V, N/A: Interpreting food labels, including serving size, macronutrients, vitamins, minerals, allergens, ingredient list , % daily value Patient Instructions: Choose low-fat food options and low-fat snacks see list of options reviewed Half a protein shake (Glucerna as an example) as your lunch See meal plan ideas and education on gastroparesis diet reviewed and printed out Coding Level of Care Code Nutr Indiv Intake (98624) Diagnoses Diabetes mellitus with gastroparesis E11.43 Time Spent (min) 30
[2025-02-05 12:39] VITALS: BMI 20.9
--- OUTSIDE RECORDS SUMMARY | 2025-02-05 14:29 | XMS_ITS | Clinical Summary ---
Author Organization [facility] Address [address] [place] [address] Care Team Providers Care [employer] Professor Name Role Phone Unavailable Primary Care Provider Unavailabl e Source Comments PLEASE NOTE, if this patient is a minor, it may be UNLAWFUL to discuss sensitive information that is contained in these records (such as FAMILY PLANNING, MENTAL HEALTH or SUBSTANCE ABUSE) with the minor patient's parent or other person without the patient's specific authorization.[facility] Medications No known medications Active Problems No known active problems Encounters Date Type Department Care Team Description 12/16/2024 10:40 AM EDT Office Visit [facility] [address] [place] [phone] Sailaja Riley from Last 3 Months Social History Tobacco Use Types Packs/Day Years Used Date Smoking Tobacco: Never Assessed Sex and Gender Information Value Date Recorded Sex Assigned at Not on file Legal Sex Male 9:01 AM PDT Gender Identity Not on file Sexual Orientation Not on file Last Filed Vital Signs Vital Sign Reading Time Taken Comments Blood Pressure 123/78 12/16/2024 5:03 PM EDT Pulse 65 12/16/2024 5:03 PM EDT Temperature - - Respiratory Rate - - Oxygen Saturation - - Inhaled Oxygen Concentration - - Weight - - Height - - Body Mass Index - - Plan of Treatment Upcoming Encounters Date Type Department Care Team (Late st Contact Info) Description 03/04/2025 11:00 AM EST Office Visit [facility] [address] [place] [phone] Ugo Costello DDS [address] [place] [address] Health Maintenance Due Date Last Done Comments Hepatitis C Screening [address] Colonography 2002 Colonoscopy 2002 Colorectal Cancer Screening 2002 FIT/gFOBT 2002 Fecal DNA 2002 Flexible Sigmoidoscopy 2002 Imm-DTaP/Tdap/Td (2 - Td or Tdap) 07/20/2022 013 Abdominal Aortic Aneurysm Screening 2022 Falls Prevention 2022 Alcohol and Drug Screen 03/27/2024 Depression Annual Screen 03/27/2024 [id number] ( season) 2024 12/26/2023, 03/23/2022, 08/04/2021, Additional history exists Imm-Influenza (#1) 2024 12/26/2023, 0 11/29/2022, 03/23/2022, Additional history exists Imm-Pneumococcal 50+ (3 of 3 - PCV20 or PCV21) 12/26/2024 12/27/2019, 02/06/2014, 01/14/2011 Hypertension Screening (#1) 12/16/2025 Diabetes Screening 12/07/2027 12/06/2024, 0 12/06/2024, 12/06/2024, Additional history exists Lipid Screening 12/06/2029 12/06/2024 Imm-Zoster, Recombinant Completed 03/29/2023, 01/23 Procedures Procedure Name Priority Date/Time Associated Diagnosis Comments LIMITED ORAL EVALUATION - PROBLEM FOCUSED Routine 12/16/2024 10:40 AM EDT [facility] Dental infection INTRAORAL - PERIAPICAL FIRST RADIOGRAPHIC IMAGE Routine 12/16/2024 10:40 AM EDT Dental infection [facility] BITEWING - SINGLE RADIOGRAPHIC IMAGE Routine 12/16/2024 10:40 AM EDT Dental infection [facility] CASE PRESENTATION SUBS DTL & EXTENSIVE TX PLN Routine 12/16/2024 10:40 AM EDT [facility] Dental infection from Last 3 Months Insurance [facility]
--- OUTSIDE RECORDS SUMMARY | 2025-02-05 14:29 | XMS_ITS | Clinical Summary ---
Author Organization [facility] Address [address] [place] [address] Phone Care Team Providers Care Warehouse Administrator Name Role Phone Tameka Dias MD Primary Care Prov ider Allergies Active Allergy Reactions Criticality Noted Date Comments Dulaglutide Nausea And Vomiting High 06/21/2018 Mirtazapine High 01/22/2025 Severe N/V, fever, diarrhea Medications B-complex with vitamin C (SUPER B COMPLEX-VITAMIN C ORAL) Take 1 Cap by mouth daily. Active rutin/hesp/biofla [id number] (BIOFLEX ORAL) Take by mouth. Active blood glucose control high,low (FreeStyle Control) solution Use to calibrate glucometer as directed 12/29/19 12 Active blood-glucose sensor (DEXCOM G5-G4 SENSOR [facility]) by Does not apply route. Active OneTouch Ultra Test test strip 1 Strip by In Vitro route as needed. Active loratadine (CLARITIN) 10 mg tablet Take 10 mg by mouth daily. Active LORazepam (ATIVAN) 1 mg tablet Take 1 Tablet by mouth every 8 hours as needed for Anxiety. 05/28/19 23 Active metFORMIN XR (GLUCOPHAGE-XR) 500 mg 24 hr tablet Take 500 mg by mouth. 03/25/20 21 Active oxyCODONE (ROXICODONE) 30 mg immediate release tablet Take 1 Tablet by mouth at bedtime. For 7 days Active oxyCODONE (ROXICODONE) 20 mg immediate release tablet Take 1 Tablet by mouth every 6 hours. For 21 days Active verapamil SR (CALAN-SR) 240 mg CR tablet TAKE 1 TABLET BY MOUTH DAILY NEEDED FOR OTHER (HEADACHE). 90 tablet 1 01/31/20 24 Active Glucagon HCl, rDNA, (Glucagon Emergency Kit, human,) 1 mg injection Inject 1 mg under the skin 1 (one) time if needed for low blood sugar for up to 2 doses. 1 each 1 02/26/20 24 Active insulin lispro (HumaLOG KwikPen Insulin) 100 unit/mL injection pen INJECT 2-14 UNITS INTO THE SKIN 3 TIMES DAILY (BEFORE MEALS). 70-130: 0 UNITS, 131-180: 6 UNITS, 181-240: 8 UNITS, 241-300: 10 UNITS, 301-350: 12 UNITS, 351-400: 14 UNITS 15 mL 5 04/10/19 25 Active atorvastatin (LIPITOR) 80 mg tablet TAKE 1 TABLET BY MOUTH EVERY DAY 90 tablet 1 04/05/19 25 Active Lantus Solostar U-100 Insulin 100 unit/mL (3 mL) injection penIndications:Ty pe 2 diabetes mellitus with hypoglycemia without coma ([facility] V24, [facility] V28),Diabetes mellitus due to underlying condition with diabetic polyneuropathy ([facility] V24, [facility] V28) INJECT 45 UNITS SUBCUTANEOUSLY EVERY MORNING AND INJECT 20 UNITS EVERY EVENING 30 mL 5 06/21/19 25 Active diclofenac (VOLTAREN) 1 % topical gel APPLY 1 GRAM TOPICALLY TO THE AFFECTED AREA TWICE A DAY 100 g 2 08/03/19 25 Active ferrous sulfate 325 mg (65 mg elemental iron) tablet TAKE 1 TABLET BY MOUTH EVERY DAY 90 tablet 1 08/21/19 25 Active lisinopril (PRINIVIL,ZESTRIL ) 40 mg tablet TAKE 1 TABLET BY MOUTH EVERY DAY 90 tablet 1 08/22/19 25 Active amLODIPine (NORVASC) 5 mg tablet TAKE 1 TABLET BY MOUTH EVERY DAY 90 tablet 1 08/22/19 25 Active aspirin 81 mg EC tablet Take 2 tablets (162 mg total) by mouth 1 (one) time each day. 180 tablet 1 08/23/19 25 Active amitriptyline (ELAVIL) 25 mg tabletIndications :Peripheral vascular disease, unspecified ([facility] V24),Type 2 diabetes mellitus with diabetic polyneuropathy ([facility] V24, [facility] V28) TAKE 1 TABLET BY MOUTH EVERYDAY AT BEDTIME 90 tablet 1 08/29/19 25 Active gabapentin (NEURONTIN) 800 mg tablet TAKE 1 TABLET BY MOUTH THREE TIMES A DAY 270 tablet 1 08/30/19 25 Active fluticasone propionate (FLONASE) 50 mcg/actuation nasal spray USE TWO SPRAYS IN EACH NOSTRIL ONCE DAILY 48 mL 1 09/21/19 25 Active chlorthalidone (HYGROTON) 50 mg tablet TAKE 1 TABLET BY MOUTH EVERY DAY 90 tablet 1 09/26/19 25 Active sildenafiL (VIAGRA) 100 mg tablet TAKE 1 TABLET BY MOUTH APPROXIMATELY ONE HOUR BEFORE SEXUAL ACTIVITY. DO NOT USE MORE THAN 1 DOSE 4 tablet 5 10/03/19 25 Active pen needle, diabetic (BD La 2nd Gen Pen Needle) 32 gauge x needleIndications :Uncontrolled type 2 diabetes mellitus with hypoglycemia without coma ([facility] V24, [facility] V28) USE WITH INSULIN PENS FOUR TIMES DAILY 400 each 1 10/31/19 25 Active carvediloL (COREG) 6.25 mg tablet TAKE 1 TABLET BY MOUTH TWICE A DAY WITH FOOD 180 tablet 1 11/01/19 25 Active docusate sodium (COLACE) 100 mg capsule TAKE 1 CAPSULE BY MOUTH TWICE A DAY 180 capsule 11/05/19 25 Active famotidine (PEPCID) 20 mg tablet TAKE 1 TABLET BY MOUTH TWICE A DAY 180 tablet 1 11/12/19 25 Active spironolactone (ALDACTONE) 25 mg tablet TAKE 1 TABLET BY MOUTH TWICE A DAY 180 tablet 1 11/12/19 25 Active acetaminophen (TYLENOL) 500 mg tabletIndications :Peripheral vascular disease, unspecified ([facility] V24),Type 2 diabetes mellitus with diabetic polyneuropathy ([facility] V24, [facility] V28) TAKE 1 TABLET BY MOUTH EVERY 6 HOURS NEEDED FOR PAIN 90 tablet 5 12/17/19 25 Active alpha lipoic acid 600 mg capsule Take 1 capsule by mouth 2 (two) times a day. 180 capsule 1 12/24/19 25 Active Eliquis 5 mg tablet TAKE 1 TABLET BY MOUTH TWICE A DAY 60 tablet 3 12/25/19 25 Active pantoprazole (PROTONIX) 40 mg EC tablet TAKE 1 TABLET BY MOUTH EVERY DAY 90 tablet 1 12/28/19 25 Active venlafaxine XR (EFFEXOR-XR) 75 mg 24 hr capsule Take 1 capsule (75 mg total) by mouth 1 (one) time each day. Take with food. 30 each 5 01/23/20 25 026 Active insulin lispro 100 unit/mL injectionIndicati ons:Uncontrolled type 2 diabetes mellitus with hypoglycemia without coma ([facility] V24, [facility] V28) Via insulin pump, max up to 50 units a day 45 mL 2 01/25/20 25 Active venlafaxine XR (EFFEXOR-XR) 37.5 mg 24 hr capsule Take 1 capsule (37.5 mg total) by mouth 1 (one) time each day. Do not crush or chew. 30 each 1 12/07/19 25 025 Disconti nued([place]ara[place] rder) Active Problems Problem Noted Date Diagnosed Date PAF (paroxysmal atrial fibri llation) ([facility] V24, [facility] V28) 05/23/2024 PVD (peripheral vascular disease) ([place] [id number]) 05/23/2024 Gastroparesis diabeticorum ([place] [id number], [facility] V28) 02/26/2024 Below-knee amputation of bot h lower extremities ([place] [id number], [facility] V28) 11/10/2023 Overview (01/10/2024): Right in 2019 and then left in 2023 Obstructive sleep apnea 01/08/2020 Overview (01/10/2024): [facility] Home Sleep Apnea Test: Date 12/31/2019; Wt 184#; BMI 28; FRAN (AHI) 30, AI 14; HI 16; Unclassified apneas 0; Obstructive apneas 119; Central apneas 10; Mixed apneas 0; hypopneas 148; average oxygen saturation 92% (lowest 70% with saturations <88% for 5% or more of study) - Obstructive Sleep Apnea - severe; mostly hypopneas and obstructive apneas; with sleep related hypoventilation by 2019 home sleep apnea test. Nocturnal hypoxemia 01/08/2020 Type 2 diabetes mellitus wit h cardiac complication ([facility] V24, [facility] V28) 11/19/2019 Diabetes type 2 with atheros clerosis of arteries of extremities ([facility] V24, [facility] V28) 11/19/2019 Traumatic amputation of grea t toe of left foot ([facility] V24) 09/12/2019 Peripheral artery disease ([facility] V24) 09/05/19 20 Overview (01/10/2024): S/p endarterectomy and bypass 08/2019.Dr. Abbott Uncontrolled type 2 diabetes mellitus with hypoglycemia without coma ([facility] V24, [facility] V28) 12/31/2018 Atherosclerosis of qagan [place] coronary artery of luigi yen heart 12/31/2018 Amputation, below knee, unil ateral, traumatic ([facility] V24, [facility] V28) 12/17/2018 Overview (01/10/2024): Right Marijuana smoker 01/05/2018 HOCM (hypertrophic obstructi ve cardiomyopathy) ([facility] V24, [facility] V28) 04/16/2014 Hypertrophic cardiomyopathy ([facility] V24, [facility] V28) 07/03/2013 Diabetic neuropathy ([facility] V24, [facility] V28) 1 High cholesterol 04/02/2010 Diabetes mellitus, type 2 ([facility] V24, [facility] V28) 04/02/2010 Overview (01/10/2024): V-Go 20 Assessment & Plan (01/10/2024 12:48 PM EDT): Diabetes mellitus type 2, uncontrolled Tobacco use disorder 04/20/2006 Allergic rhinitis 10/27/2005 Asthma 10/27/2005 Esophageal reflux 08/23/2005 Erectile dysfunction 04/22/2005 Hypertension 04/22/2005 Encounters Date Type Department Care Team Description 01/22/2025 10:00 AM EDT Consult Adult Medicine - [place] [address] [place] [address] Tameka Ruggiero MD Preop examination (Primary Dx); Uncontrolled type 2 diabetes mellitus with hypoglycemia without coma ([facility] V24, [facility] V28) 12/31/2024 Telephone Adult Medicine - [place] [address] [place] [address] Tameka Ruggiero MD 12/23/2024 11:00 AM EDT - 12/23/2024 11:59 PM EDT Hospital Encounter [facility] CT Scan [address] [place] [phone] Encounter for screening for malignant neoplasm of respiratory organs; Nicotine dependence, cigarettes, uncomplicated Discharge Disposition: Home or Self Care 12/11/2024 Telephone Adult Medicine - [address] [phone] Tameka Ruggiero MD 12/06/2024 11:10 AM EDT Lab Draw Station - [address] [phone] Uncontrolled type 2 diabetes mellitus with hypoglycemia without coma (CMS/HCC V24, CMS/HCC V28); Anemia, unspecified type; Benign prostatic hyperplasia with urinary hesitancy; Hypertension, unspecified type 12/02/2024 9:30 AM EDT Consult Endocrinology [address] [phone] Mariela Guzman MD Hypertension, unspecified type (Primary Dx); Uncontrolled type 2 diabetes mellitus with hypoglycemia without coma (CMS/HCC V24, CMS/HCC V28); Urinary urgency 11/21/2024 1:00 PM EDT Nutrition Internal Medicine - [place] [address] [facility] [address] [place] [phone] Type 2 diabetes mellitus with cardiac complication (CMS/HCC V24, CMS/HCC V28) (Primary Dx) 11/15/2024 Telephone Adult Medicine - [address] [phone] Tameka Ruggiero MD 11/05/2024 Telephone Adult Medicine [address] [address] Tameka Ruggiero MD from Last 3 Months Immunizations Immunization Administration Dates Next Due COVID-19 (Pfizer/Comirnaty) 12yo and older 12/26/2023 H1N1 Inj Preservative Free 03/06/2009 Influenza Quadravalent, MDCK , 0.5ml, preservative free (Flucelvax) 6mo and older 03/23/2022,12/27/2019,02/10/2019,02/07 Influenza Quadravalent, MDCK , 0.5ml, with preservative (Flucelvax) 6mo and older 01/05/2017 Influenza trivalent, 0.5mL ( Fluad) 65yo and older 11/29/2022,12/07/2020 Influenza trivalent, 0.5mL ( Fluzone High-dose) 65yo and older 12/26/2023,11/29/2022,12/07/2020 Influenza trivalent, 0.5mL, preservative free (Fluarix; FluLaval; Fluzone) ages 6mo and older (Afluria) 3 years and older 03/23/2022,12/21/2015,12/17/2014,02/06,12/04/2012,12/14/2011,01/14/2011 ,01/09/2010,12/13/2008,01/10/2007,01/26,01/12/2005 Influenza trivalent, with pr eservative (Fluzone; Afluria) 6mo and older 12/27/2019,02/10/2019,02/07/2018,12/20,12/17/2014,02/06/2014,12/04/2012 ,12/14/2011,01/14/2011,01/09/2010,11/25,01/10/2007,02/19/2006, 5 Pfizer (ages 12 & older) Biv alent, COVID-19 03/23/2022 Pfizer SARS-CoV-2 COVID-19, mRNA, LNP-S, preservative free 12/26/2023 Pneumococcal conjugate 13 va lent (Prevnar 13, PCV13) 2mo and older 12/27/2019 Pneumococcal polysaccharide 23 valent (Pneumovax 23) 2yo and older 02/06/2014,01/14/2011 RSV, bivalent, protein subun it RSVpreF, 0.5mL, Preservative Free (Arexvy) 50yo and older 01/23/2023 SARS-COV-2 (COVID-19) Vaccin e, Unspecified 03/23/2022 Tdap Tetanus diptheria acell ular pertussis (Boostrix; Adacel) 7yo and older 07/20/2012 Zoster recombinant (Shingrix ) 19yo and older 03/29/2023,01/23/2023 Surgical History Surgery Date Site/Laterality Comments TONSILLECTOMY PROCEDURE: HISTORICAL TONSILLECTOMY COLONOSCOPY 06/29/2009 PROCEDURE: HISTORICAL COLONOSCOPY; COMMENT: Normal UPPER GASTROINTESTINAL ENDOSCOPY 03/28/2018 PROCEDURE: FL UPPER GI ENDOSCOPY PERFORMED; COMMENT: Minimal gastric erythema, bx done; ?vocal cord lesion, referred to ENT. OTHER SURGICAL HISTORY 12/10/2018 Right PROCEDURE: HISTORICAL BELOW KNEE AMP OTHER SURGICAL HISTORY 08/2019 Left PROCEDURE: ---- OTHER ----; COMMENT: common femoral endarterectomy, left SFA to medial plantary artery bypass COLONOSCOPY 08/18/2020 PROCEDURE: HISTORICAL COLONOSCOPY; COMMENT: Small lipomas x2, otherwise normal, repeat in 10 years. 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 DX:I mpotence of organic origin Special screening for malign ant neoplasms, colon 06/29/2009 DX:Special screening for mal ignant neoplasms, colon Marijuana smoker 01/05/2018 DX:Marijuana sm oker Peripheral artery disease ([place]/HCC V24) 09/05/2019 DX:Peripheral artery disease (HCC); COMMENT: S/p endarterectomy and bypass 08/2019 Diabetes type 2 with atheros clerosis of arteries of extremities (CMS/HCC V24, CMS/HCC V28) 11/19/2019 DX:Diabetes type 2 with atherosclerosis of arteries of extremities (HCC) Type 2 diabetes mellitus wit h cardiac complication (CMS/HCC V24, CMS/HCC V28) 11/19/2019 DX:Type 2 diabetes mellitus with cardiac complication (HCC) Family History Medical History Relation Name Comments Diabetes Brother 1 Arthritis Father Arthritis Mother Hypertension Mother Colon cancer Neg Hx Relation Name Status Comments Brother 1 Brother 2 Alive dm Father Alive Maternal Grandmother stomach cancer Mother Alive htn Social History Tobacco Use Types Packs/Day Years Used Date Smoking Tobacco: Every Day Cigarettes 1 49.9 Started: 03/27/1975 Smokeless Tobacco: Never Alcohol Use Standard Drinks/Week Comments No 0 (1 standard drink = 0.6 oz pur e alcohol) Housing Instability Answer Date Recorde d Are you worried that in the next 2 months you may not have stable housing? Yes 10/30/2024 Food Access & Nutrition Answer Date Rec orded Do you have access to a vari ety of food including fruits and vegetables? Yes 10/30/2024 Access to Healthcare Answer Date Record ed Within the last 3 months, ho w many times did you visit the emergency department for your medical care? 1 10/30/2024 Health Literacy Answer Date Recorded How often do you need to hav e someone help you when you read instructions, pamphlets, or other written material from your doctor or pharmacy? Sometimes 10/30/2024 Caregiver: How often do you need to have someone help you when you read instructions, pamphlets, or other written material from your doctor or pharmacy? Not on file 10/30/2024 Financial Risk Answer Date Recorded How hard is it for you to pa y for the very basics like food, housing, medical care, and air conditioning / heating? Very hard 10/30/2024 Transportation Answer Date Recorded Has the lack of transportati on kept you from meetings, work, or from getting things needed for daily living? No Has the lack of transportati on kept you from medical appointments or from getting medications? No 10/30/2024 Social Isolation Answer Date Recorded How often do you feel lonely or isolated from those around you? Sometimes 10/30/2024 Food Risk Answer Date Recorded Within the past 12 months we worried whether our food would run out before we got money to buy more. Sometimes true 025 Within the past 12 months th e food we bought just didn't last and we didn't have money to get more. Sometimes true 10/30/2024 Dependent Care Answer Date Recorded Do you need help finding or paying for care for your loved ones. For example, child day care teacher or elderly care for an older adult? No 10/30/2024 Education Answer Date Recorded Do you think completing more education or training, like finishing a GED, going to college, or learning a trade, would be helpful for you? Yes 10/30/2024 Employment and Income Answer Date Recor ded During the last four weeks, have you been actively looking for work? Yes 10/30/2024 Living Situation Answer Date Recorded What is your living situation? Unrecognized valu e 10/30/2024 Sex and Gender Information Value Date Recorded Sex Assigned at Male 08/14/2024 11:28 AM EDT Legal Sex Male 5:53 PM EST Gender Identity Male 08/14/2024 11:28 AM EDT Sexual Orientation Straight 08/14/2024 11 :28 AM EDT Obstetrics History Last Filed Vital Signs Vital Sign Reading Time Taken Comments Blood Pressure 99/54 01/22/2025 10:21 AM EDT Pulse 77 01/22/2025 10:21 AM EDT Temperature 36.7 C (98.1 F) 01/22/2025 10:21 AM EDT Respiratory Rate - - Oxygen Saturation - - Inhaled Oxygen Concentration - - Weight 63.5 kg (140 lb) 01/22/2025 10:21 AM EDT Height 172.7 cm (5' 8 ) 12/02/2024 9:45 AM EDT Body Mass Index 21.29 12/02/2024 9:45 AM EDT Plan of Treatment Upcoming Encounters Date Type Department Care Team (Late st Contact Info) Description 03/03/2025 11:15 AM EST Office Visit Adult Medicine [facility] [address] [place] [address] Tameka Dias MD [address] [place] [address] 04/01/2025 11:15 AM EST Office Visit [facility] Hematology Oncology [address] [place] [phone] Chela Prakash MD [address] [place] [address] Health Maintenance Due Date Last Done Comments Diabetes: Annual Retina Eye Exam 10/04/1965 Abdominal Aortic Aneurysm (AAA) Screen 03/05/2022 Medicare Annual Wellness Visit 03/05/2022 DTaP,Tdap,and Td Vaccines (2 - Td or Tdap) 07/20/2022 07/20/2012 Diabetes: Annual Foot Exam 06/29/2024 06/30/2023 COVID-19 Vaccine ( season) 2024 12/26/2023, 12/26/2023, 01/23/2023, Additional history exists Influenza Vaccine (#1) 2024 , 11/29/2022, 11/29/2022, Additional history exists Pneumococcal Vaccine: 50+ Years (3 of 3 - PCV20 or PCV21) 12/26/2024 12/27/2019, 02/06/2014, 01/14/2011 Diabetes: Blood Sugar Control Test (HGBA1C) 06/05/2025 12/06/2024, 08/22/2024, 04/27/2023 Falls Risk Assessment 10/30/2025 10/30/2024, 025 Social Influencers of Health Screening 10/30/2025 10/30/2024 Diabetes: Annual GFR (Glomerular Filtration Rate) 12/06/2025 12/06/2024, 04/27/2023 Hypertension/CHF/CAD Annual BMP Blood Test 12/06/2025 12/06/2024, 04/27/2023 Diabetes: Annual Urine Albumin-Creatinine Ratio (uACR) 12/16/2025 12/16/2024, 07/23/2021 Lung Cancer Screening (Low Dose CT) 12/23/2025 12/23/2024, 10/19/2023, 10/16/2023, Additional history exists Cholesterol Screening (Lipid Panel) 12/06/2029 12/06/2024, 05/04/2022 Colorectal Cancer Screening: Colonoscopy 08/18/2030 08/18/2020 Hepatitis C Screening Completed 02/06/2014 RSV Immunization Adult Patients Completed 01/23/2023 Zoster Vaccines Completed 03/29/2023, 01/23/2023 Depression Screening Completed 10/30/2024 HIB Vaccines Aged Out No longer eligi ble based on patient's age to complete this topic HPV Vaccines Aged Out No longer eligi ble based on patient's age to complete this topic Hepatitis A Vaccines Aged Out No long er eligible based on patient's age to complete this topic Hepatitis B Vaccines Aged Out No long er eligible based on patient's age to complete this topic IPV Vaccines Aged Out No longer eligi ble based on patient's age to complete this topic MMR Vaccines Aged Out No longer eligi ble based on patient's age to complete this topic Meningococcal ACWY Vaccine Aged Out N o longer eligible based on patient's age to complete this topic Meningococcal B Vaccine Aged Out No l onger eligible based on patient's age to complete this topic RSV Immunization Patients Under 20 months Aged Out No longer eligible based on patient's age to complete this topic Varicella Vaccines Aged Out No longer eligible based on patient's age to complete this topic Procedures Procedure Name Priority Date/Time Associated Diagnosis Comments ECG 12-LEAD Routine 01/22/2025 1:[address] LUNG SCREENING Routine 12/23/2024 11: 14 AM EDT Encounter for screening for malignant neoplasm of respiratory organs Nicotine dependence, cigarettes, uncomplicated MICROALBUMIN CREATININE URINE RATIO Routine 12/16/2024 12:23 PM EDT Uncontrolled type 2 diabetes mellitus with hypoglycemia without coma ([facility] V24, [facility] V28) ISLET CELL CYTOPLASMIC ANTIBODY, IGG Routine 12/06/2024 12:37 PM EDT Uncontrolled type 2 diabetes mellitus with hypoglycemia without coma ([facility] V24, [facility] V28) HEMOGLOBIN A1C Routine 12/06/2024 11:24 AM EDT Uncontrolled type 2 diabetes mellitus with hypoglycemia without coma ([facility] V24, [facility] V28) Anemia, unspecified type Benign prostatic hyperplasia with urinary hesitancy C-PEPTIDE Routine 12/06/2024 11:24 AM EDT Uncontrolled type 2 diabetes mellitus with hypoglycemia without coma ([facility] V24, [facility] V28) GLUTAMIC ACID DECARBOXYLASE ANTIBODY Routine 12/06/2024 11:24 AM EDT Uncontrolled type 2 diabetes mellitus with hypoglycemia without coma ([facility] V24, [facility] V28) THYROXINE FREE Routine 12/06/2024 11:24 AM EDT Hypertension, unspecified type THYROID STIMULATING HORMONE Routine 12/06/2024 11:24 AM EDT Hypertension, unspecified type IRON AND TIBC Routine 12/06/2024 11:24 AM EDT Uncontrolled type 2 diabetes mellitus with hypoglycemia without coma (CMS/HCC V24, CMS/HCC V28) Anemia, unspecified type Benign prostatic hyperplasia with urinary hesitancy FERRITIN Routine 12/06/2024 11:24 AM EDT Uncontrolled type 2 diabetes mellitus with hypoglycemia without coma (CMS/HCC V24, CMS/HCC V28) Anemia, unspecified type Benign prostatic hyperplasia with urinary hesitancy COMPLETE BLOOD COUNT Routine 12/06/2024 11:24 AM EDT Uncontrolled type 2 diabetes mellitus with hypoglycemia without coma (CMS/HCC V24, CMS/HCC V28) Anemia, unspecified type Benign prostatic hyperplasia with urinary hesitancy COMPREHENSIVE METABOLIC PANEL Routine 12/06/2024 11:24 AM EDT Uncontrolled type 2 diabetes mellitus with hypoglycemia without coma (CMS/HCC V24, CMS/HCC V28) Anemia, unspecified type Benign prostatic hyperplasia with urinary hesitancy LIPID PANEL WITH REFLEX TO DIRECT LDL Routine 12/06/2024 11:24 AM EDT Uncontrolled type 2 diabetes mellitus with hypoglycemia without coma (CMS/HCC V24, CMS/HCC V28) Anemia, unspecified type Benign prostatic hyperplasia with urinary hesitancy DIABETES FOOT EXAM Routine 06/30/2023 COLONOSCOPY Routine 08/18/2020 HEPATITIS C SCREENING Routine 02/06/2014 from Last 3 Months or Most Recently Relevant to Health Maintenance Results * ECG 12 lead (01/22/2025 1:37 PM EDT) us Historical Provider ECG ORDERABLES Final Res ult * CT Lung Screening (12/23/2024 11:14 AM EDT) Anatomical Region Laterality Modality Chest Computed Tomogra phy 01/01/2025 4:09 AM EDT Impressions 01/01/2025 4:19 AM EDT No suspicious pulmonary nodules Lung RADS 2: Benign Appearance or Behavior - Continue annual screening with LDCT in 12 months. -------- FINAL REPORT -------- Dictated By: Katie Perez Dictated Date: 01/01/2025 04:09 ET Assigned Physician: Katie Perez Reviewed and Electronically Signed By: Katie Perez Signed Date: 01/01/2025 04:19 ET Workstation ID: [id number] Transcribed By: Self Edit Transcribed Date: 01/01/2025 04:09 ET Narrative 01/01/2025 4:19 AM EDT Indication: Greater than 20 total pack-year smoking history, asymptomatic current smoker Technique: Low-dose CT scan of the chest obtained as a lung cancer screening study. Multiplanar reformatted images were obtained. Dose reduction technique: ASIR (Adaptive statistical iterative reconstruction) and/or AEC (automated exposure control) DLP: 162.24 mGy-cm COMPARISON: September 2023. FINDINGS: Lack of intravenous contrast limits evaluation of the nicole, vascular structures and visualized abdominal viscera. Lungs/airways: Secretions are noted within the distal trachea as well as the right mainstem bronchus with bronchial wall thickening. Scattered emphysematous changes. Calcified granulomata. Scattered sub-5 mm pulmonary nodules, similar to prior. Base of the neck, mediastinum, heart, chest wall, vessels: The assessment of hilar lymphadenopathy is difficult without the use of IV contrast. Prominent paratracheal lymph node is similar to prior. Prominent 11 mm subcarinal lymph node is similar to prior. Coronary artery calcifications. Upper abdomen: This study was performed without contrast and with lower than standard dose. These factors reduce the sensitivity for detection of small lesions in the upper abdomen. Thickening of both adrenal glands, similar to prior. Bones/soft tissues: Degenerative changes Procedure Note Katie Perez MD - 01/01/2025 Indication: Greater than 20 total pack-year smoking history, asymptomaticcurrent smoker Technique: Low-dose CT scan of the chest obtained as a lung cancerscreening study. Multiplanar reformatted images were obtained. Dosereduction technique: ASIR (Adaptive statistical iterative reconstruction)and/or AEC (automated exposure control) DLP: 162.24 mGy-cm COMPARISON: September 2023. FINDINGS: Lack of intravenous contrast limits evaluation of the nicole,vascular structures and visualized abdominal viscera. Lungs/airways: Secretions are noted within the distal trachea as well asthe right mainstem bronchus with bronchial wall thickening. Scatteredemphysematous changes. Calcified granulomata. Scattered sub-5 mmpulmonary nodules, similar to prior. Base of the neck, mediastinum, heart, chest wall, vessels: The assessmentof hilar lymphadenopathy is difficult without the use of IV contrast.Prominent paratracheal lymph node is similar to prior. Prominent 11 mmsubcarinal lymph node is similar to prior. Coronary arterycalcifications. Upper abdomen: This study was performed without contrast and with lowerthan standard dose. These factors reduce the sensitivity for detection ofsmall lesions in the upper abdomen. Thickening of both adrenal glands,similar to prior. Bones/soft tissues: Degenerative changes IMPRESSION: No suspicious pulmonary nodules Lung RADS 2: Benign Appearance or Behavior - Continue annual screeningwith LDCT in 12 months. -------- FINAL REPORT -------- Dictated By: Katie Perez Dictated Date: 01/01/2025 04:09 ET Assigned Physician: Katie Perez Reviewed and Electronically Signed By: Katie Perez Signed Date: 01/01/2025 04:19 ET Workstation ID: [id number] Transcribed By: Self Edit Transcribed Date: 01/01/2025 04:09 ET us Saiqb Hawley MD [facility] [place] PROCEDURES Final Result * Microalbumin creatinine urine ratio (12/16/2024 12:23 PM EDT) Creatinine, Urine 52.0 mg/dL LAB CHEMISTRY METHOD 12/16/2024 4:25 PM EDT [facility] Microalb, Ur <5.0 0.0 - 29.0 mg/L LAB CHEMISTRY METHOD 12/16/2024 4:25 PM EDT [facility] Microalb/Creat Ratio <10 <30 mg/g creat LAB CHEMISTRY METHOD 12/16/2024 4:25 PM EDT [facility] Urine Urine specimen from urethra / Unknown Non-blood Collection / Unknown 12/16/2024 12:23 PM EDT 12/16/2024 12:23 PM EDT us Emy DELGADO LAB URINE ORDERABLES Final Result [facility] [address] [place] [address], * Islet cell cytoplasmic antibody, IgG (12/06/2024 12:37 PM EDT) Islet Cell Antibody IgG <1:4 <1:4 12/11/2024 8:24 PM EDT [facility] Comment: INTERPRETIVE INFORMATION: Islet Cell Ab, IgG Islet cell antibodies (ICAs) are associated with type 1 diabetes (TID), an autoimmune endocrine disorder. ICAs may be present years before the onset of clinical symptoms. To calculate Juvenile Diabetes Foundation (JDF) units: multiply the titer x 5 (1:8 8 x 5 = 40 JDF Units). This test was developed and its performance characteristics determined by [facility]. It has not been cleared or approved by the [place] Food and Drug Administration. This test was performed in a CLIA certified laboratory and is intended for clinical purposes. Performed By: [facility] [address] [place] [id number] Parachute/Combatant Diver Officer: Darion Espino MD, PhD CLIA Number: [id number] Blood Venous blood specimen / Unknown Venipuncture / Unknown 12/06/2024 12:37 PM EDT 12/06/2024 12:37 PM EDT us Mariela Guzman MD LAB BLOOD ORDERABLES Final Resul t [facility] [address] [place] [address] * Lipid panel with reflex to direct LDL (12/06/2024 11:24 AM EDT) Cholesterol 100 0 - 200 mg/dL LAB CHEMISTRY METHOD 12/06/2024 3:53 PM EDT [facility] Triglycerides 54 0 - 150 mg/dL LAB CHEMISTRY METHOD 12/06/2024 3:53 PM EDT [facility] HDL 40 >=40 mg/dL LAB CHEMISTRY METHOD 12/06/2024 3:53 PM EDT [facility] LDL Calculated 49 0 - 100 mg/dL LAB CHEMISTRY METHOD 12/06/2024 3:53 PM EDT [facility] Comment:Estimated LDL Calcul ated using equation: Total cholesterol - HDL cholesterol - (Triglycerides/5) VLDL Cholesterol Perez 10.8 mg/dL LAB CHEMISTRY METHOD 12/06/2024 3:53 PM EDT [facility] Non HDL Chol. (LDL+VLDL) 60 <145 mg/dL LAB CHEMISTRY METHOD 12/06/2024 3:53 PM EDT [facility] Chol/HDL Ratio 2.5 0.0 - 4.4 LAB CHEMISTRY METHOD 12/06/2024 3:53 PM EDT [facility] Blood Venous blood specimen / Unknown Venipuncture / Unknown 12/06/2024 11:24 AM EDT 12/06/2024 11:24 AM EDT us Emy DELGADO LAB BLOOD ORDERABLES Final Result [facility] [address] [place] [address], * (ABNORMAL) Iron and TIBC (12/06/2024 11:24 AM EDT) Iron 32(L) 50 - 160 mcg/dL LAB CHEMISTRY METHOD 12/06/2024 3:53 PM EDT [facility] TIBC 245(L) 250 - 450 mcg/dL LAB CHEMISTRY METHOD 12/06/2024 3:53 PM EDT [facility] Iron Saturation 13(L) 20 - 50 % LAB CHEMISTRY METHOD 12/06/2024 3:53 PM EDT [facility] Blood Venous blood specimen / Unknown Venipuncture / Unknown 12/06/2024 11:24 AM EDT 12/06/2024 11:24 AM EDT us Emy DELGADO LAB BLOOD ORDERABLES Final Result [facility] [address] [place] [address], [place] [phone] * (ABNORMAL) Glutamic acid decarboxylase antibody (12/06/2024 11:24 AM EDT) Glutamic Acid Decarboxylase Ab >120(H) <5 IU/mL 12/10/2024 1:07 PM EDT [facility] Comment: Test performed at [facility], [address], [place], [place] [id number] Heydi Jerez MD, PhD - Air Carrier Maintenance Inspector Blood Venous blood specimen / Unknown Venipuncture / Unknown 12/06/2024 11:24 AM EDT 12/06/2024 11:24 AM EDT us Mariela Guzman MD LAB BLOOD ORDERABLES Final Resul t [facility] [address] [place] [address] * (ABNORMAL) C-peptide (12/06/2024 11:24 AM EDT) C-Peptide 0.09(L) 0.80 - 3.90 ng/mL LAB CHEMISTRY METHOD 12/06/2024 4:07 PM EDT [facility] Blood Venous blood specimen / Unknown Venipuncture / Unknown 12/06/2024 11:24 AM EDT 12/06/2024 11:24 AM EDT Mariela Guzman MD LAB BLOOD ORDERABLES Final Resul t [facility] [address] [place] [address], * (ABNORMAL) Complete blood count (12/06/2024 11:24 AM EDT) WBC 7.6 4.8 - 10.8 K/mcL LAB HEMETOLOGY METHOD 12/06/2024 3:41 PM [facility] RBC 3.90(L) 4.50 - 5.50 M/mcL LAB HEMETOLOGY METHOD 12/06/2024 3:41 PM [facility] Hemoglobin 11.3(L) 13.5 - 17.5 g/dL LAB HEMETOLOGY METHOD 12/06/2024 3:41 PM [facility] Hematocrit 34.8(L) 42.0 - 54.0 % LAB HEMETOLOGY METHOD 12/06/2024 3:41 PM [facility] MCV 88.5 79.0 - 98.0 FL LAB HEMETOLOGY METHOD 12/06/2024 3:41 PM [facility] MCH 28.8 27.0 - 32.0 pcg LAB HEMETOLOGY METHOD 12/06/2024 3:41 PM [facility] MCHC 32.5 32.0 - 37.0 g/dL LAB HEMETOLOGY METHOD 12/06/2024 3:41 PM [facility] RDW 14.2 11.0 - 15.0 % LAB HEMETOLOGY METHOD 12/06/2024 3:41 PM [facility] Platelets 244 130 - 400 K/mcL LAB HEMETOLOGY METHOD 12/06/2024 3:41 PM EDT [facility] MPV 11.3(H) 7.0 - 11.0 FL LAB HEMETOLOGY METHOD 12/06/2024 3:41 PM EDT [facility] NRBC 0.4 <1.0 % LAB HEMETOLOGY METHOD 12/06/2024 3:41 PM EDT [facility] NRBC Absolute 0.03 <0.10 K/mcL LAB HEMETOLOGY METHOD 12/06/2024 3:41 PM EDT [facility] Blood Venous blood specimen / Unknown Venipuncture / Unknown 12/06/2024 11:24 AM EDT 12/06/2024 11:24 AM EDT Emy DELGADO LAB BLOOD ORDERABLES Final Result [facility] [address] [place] [address], * Thyroid stimulating hormone (12/06/2024 11:24 AM EDT) [facility] TSH 1.04 0.40 - 4.00 mcIU/mL LAB CHEMISTRY METHOD 12/06/2024 5:00 PM EDT [facility] Blood Venous blood specimen / Unknown Venipuncture / Unknown 12/06/2024 11:24 AM EDT 12/06/2024 11:24 AM EDT Mariela Guzman MD LAB BLOOD ORDERABLES Final Resul t [facility] [address] [place] [address], * Thyroxine free (12/06/2024 11:24 AM EDT) Free T4 1.29 0.70 - 1.80 ng/dL LAB CHEMISTRY METHOD 12/06/2024 4:07 PM EDT [facility] Blood Venous blood specimen / Unknown Venipuncture / Unknown 12/06/2024 11:24 AM EDT 12/06/2024 11:24 AM EDT Mariela Guzman MD LAB BLOOD ORDERABLES Final Resul t Performing Organization Address [facility]/ZIP Co de Phone Number [facility] [address] [place] [address], [place] [phone] * (ABNORMAL) Hemoglobin A1c (12/06/2024 11:24 AM EDT) Hemoglobin A1C 8.5(H) <6.5 % LAB CHEMISTRY METHOD 12/06/2024 8:54 PM EDT [facility] Mean Bld Glu Estim. 197 mg/dL LAB CHEMISTRY METHOD 12/06/2024 8:54 PM EDT [facility] Blood Venous blood specimen / Unknown Venipuncture / Unknown 12/06/2024 11:24 AM EDT 12/06/2024 11:24 AM EDT us Emy DELGADO LAB BLOOD ORDERABLES Final Result Performing Organization Address [facility]/ZIP Co de Phone Number [facility] [address] [place] [address], [place] [phone] * Ferritin (12/06/2024 11:24 AM EDT) Ferritin 61 26 - 388 ng/mL LAB CHEMISTRY METHOD 12/06/2024 3:51 PM EDT [facility] Blood Venous blood specimen / Unknown Venipuncture / Unknown 12/06/2024 11:24 AM EDT 12/06/2024 11:24 AM EDT Emy DELGADO LAB BLOOD ORDERABLES Final Result [facility] [address] [place] [address], * (ABNORMAL) Comprehensive metabolic panel (12/06/2024 11:24 AM EDT) Sodium 133 133 - 145 mmol/L LAB CHEMISTRY METHOD 12/06/2024 3:53 PM EDT [facility] Potassium 4.3 3.5 - 5.5 mmol/L LAB CHEMISTRY METHOD 12/06/2024 3:53 PM [facility] Chloride 102 96 - 110 mmol/L LAB CHEMISTRY METHOD 12/06/2024 3:53 PM [facility] CO2 26 21 - 32 mmol/L LAB CHEMISTRY METHOD 12/06/2024 3:53 PM [facility] Anion Gap 5 3 - 11 LAB CHEMISTRY METHOD 12/06/2024 3:53 PM [facility] Glucose 210(H) 70 - 100 mg/dL LAB CHEMISTRY METHOD 12/06/2024 3:53 PM [facility] BUN 19 5 - 25 mg/dL LAB CHEMISTRY METHOD 12/06/2024 3:53 PM [facility] Creatinine 1.15 0.70 - 1.30 mg/dL LAB CHEMISTRY METHOD [facility] e[facility] 70 >=60 mL/min/1. 73m2 LAB CHEMISTRY METHOD 12/06/2024 3:53 PM [facility] Comment:Calculation based on the Chronic Kidney Disease Epidemiology Collaboration (CKD-EPI) equation refit without adjustment for race. BUN/Creatinine Ratio 16.5 LAB CHEMISTRY METHOD 12/06/2024 3:53 PM [facility] Calcium 8.7 8.5 - 10.5 mg/dL LAB CHEMISTRY METHOD 12/06/2024 3:53 PM [facility] AST (SGOT) 19 10 - 42 unit/L LAB CHEMISTRY METHOD 12/06/2024 3:53 PM EDT [facility] ALT (SGPT) 22 10 - 60 unit/L LAB CHEMISTRY METHOD 12/06/2024 3:53 PM EDT [facility] Alkaline Phosphatase 85 42 - 121 unit/L LAB CHEMISTRY METHOD 12/06/2024 3:53 PM EDT [facility] Total Protein 6.7 6.0 - 8.0 g/dL LAB CHEMISTRY METHOD 12/06/2024 3:53 PM EDT [facility] Albumin 3.4 3.2 - 5.0 g/dL LAB CHEMISTRY METHOD 12/06/2024 3:53 PM T [facility] Total Bilirubin 0.3 0.0 - 1.4 mg/dL LAB CHEMISTRY METHOD 12/06/2024 3:53 PM EDT [facility] Blood Venous blood specimen / Unknown Venipuncture / Unknown 12/06/2024 11:24 AM EDT 12/06/2024 11:24 AM EDT Emy DELGADO LAB BLOOD ORDERABLES Final Result [facility] [address] [place] [address], * Diabetes Foot Exam (06/30/2023) [facility] Diabetes: Annual Foot Exam abstracted Historical Provider HEALTH MAINTENANCE Final Result * Colonoscopy (08/18/2020) [facility] Colonoscopy normal, abstracted Anatomical Region Laterality Modality Other Historical Provider HEALTH MAINTENANCE Final Result * Hepatitis C Screening (02/06/2014) [facility] Hepatitis C Screening abstracted [facility] Provider HEALTH MAINTENANCE Final Result from Last 3 Months or Most Recently Relevant to Health Maintenance Insurance [employer] [place] Care Teams Warehouse Administrator Relationship Specialty Start Date End Date Tameka Dias MD [address] [place] [id number] PCP - General Internal Medicine 03/08/15
--- OUTSIDE RECORDS SUMMARY | 2025-02-05 14:29 | XMS_ITS | Patient Health Record ---
Author Organization [facility] Address [address] [place] [address] Care Team Providers Care Brand Engineer Name Role Phone Tameka Dias Primary Care Provide r Unavailable Allergies Allergen (clinical drug ingredient) Drug/Non Drug Allergy documented on EMR Reaction Allergy Type Onset Date Status dulaglutide Trulicity nausea and vomiting Drug Allergy Active Reason For Referral No Information Medications Medication SIG (Take, Route, Frequency, Duration) Notes Start Date End Date Status Gabapentin 800 MG 1 tablet Orally Once a day Active Fluticasone Propionate 50 MCG/ACT 1 spray in each nostril Nasally Once a day Active Acetaminophen 500 MG 1 tablet as needed Orally every 6 hrs Active Bioflavonoid Products - as directed Orally Active HumaLOG KwikPen 100 UNIT/ML as directed Subcutaneous Active Voltaren 1 % as directed Transdermal Active Amitriptyline HCl 25 MG 1 tablet at bedtime Orally Once a day Active LORazepam 1 MG 1 tablet at bedtime as needed Orally Once a day Active Alpha Lipoic Acid Ac tive amLODIPine Besylate 5 MG 1 tablet Orally Once a day Active Iodosorb 0.9 % APPLY TO LEFT 4TH TOE ULCERATION EXTERNALLY ONCE DAILY; Duration: 30 Active Lantus SoloStar 100 UNIT/ML as directed Subcutaneous Active Apixaban 5 MG as directed Orally Active Diclofenac Sodium 1 % as directed Transdermal Active oxyCODONE HCl 10 MG 1 tablet [...] a day; Duration: 30 days 08/07/2023 Active B Complex + C TR - as directed Orally Active Glucagon Emergency 1 MG/ML as directed Injection Active Sildenafil Citrate 100 MG 1 tablet as needed Orally Once a day Active Loratadine 10 MG 1 tablet Orally Once a day Active Carvedilol 6.25 MG 1 tablet with food Orally Twice a day Active Lisinopril 40 MG 1 tablet Orally Once a day Active Glucagon 3 MG/DOSE as directed Nasally Not-Taking Amoxicillin-Pot Clavulanate 875-125 MG 1 tablet Orally every 12 hrs; Duration: 10 day(s) 06/30/2023 Not-Taking HYDROmorphone HCl 4 MG 1 tablet as needed Orally every 6 hrs Not-Taking Santyl 250 UNIT/GM APPLY TO ULCER EXTERNALLY ONCE A DAY 30 DAYS; Duration: 30 Active Spironolactone 25 MG 1 tablet Orally Active Chlorthalidone 25 MG 1 tablet in the morning with food Orally Once a day Active Zyban 150mg Active Senna-Docusate Sodium 8.6-50 MG 1 tablet in the evening as needed Orally Once a day Active Lidocaine-Prilocaine 2.5-2.5 % as directed Externally Active Ketoconazole 2 % 1 application Externally Once a day Active oxyCODONE HCl 10 MG 1 tablet as needed Orally every 6 hrs Active Lidocaine 1.8 % 1 patch remove after 12 hours Externally Once a day Active Verapamil HCl ER 240 MG 1 capsule Orally Once a day Active Aspirin 81 MG 1 tablet Orally Once a day Active Atorvastatin Calcium 80 MG 1 tablet Orally Once a day Active Problems Problem Type SNOMED Code ICD Code Onset Dates Problem Status W/U Status Risk Notes Problem Polyneuropathy due to type 2 diabetes mellitus (054708106) Type 2 diabetes mellitus with diabetic polyneuropathy (E11.42) Active confirmed Problem Type 2 diabetes mellitus with peripheral angiopathy (959023969) Type 2 diabetes mellitus with diabetic peripheral angiopathy without gangrene (E11.51) Active confirmed Problem Peripheral arterial occlusive disease (741437685) Peripheral arterial occlusive disease (I77.9) Active confirmed Problem Amputated below knee (480463461) History of below-knee amputation of right lower extremity (Z89.511) Active confirmed Plan Of Treatment Pending Test Test Name Order Date Nail avulsion partial/complete 3 Trim dystrophic toenails any number 11/25 Trim dystrophic toenails any number 01/25 Trim dystrophic toenails any number 04/28 Trim dystrophic toenails any number 0609/2020 Trim dystrophic toenails any number 01/25 Insurance Providers Payer Name Payer Address Payer Phone Subscriber Number Group Number Insured Name Patient Relationship to Insured Coverage Start Date Coverage End Date [employer] [address] [place] [id number] Cj Fox Self - patient is the insured Medical (General) History Medical History History ICD Code Type 2 diabetes mellitus wit h diabetic peripheral angiopathy without gangrene E11.51 Type 2 diabetes mellitus with hyperglyce eugene E11.65 Coronary atherosclerosis of unspecified type of vessel, [place] or graft Hypertension HOCM (hypertrophic obstructive cardiomyo jayro) Peripheral artery disease Diabetes type 2 with atherosclerosis of arteries of extremities Type 2 diabetes mellitus with cardiac co mplication High cholesterol Diabetes mellitus type 2, uncontrolled Diabetic neuropathy uncontrolled type 2 diabetes mellitus wi th hypoglycemia without coma Esophageal reflux Erectile dysfunction tobacco use disorder marijuana smoker allergic rhinitis, cause unspecified Osteoarthritis of left shoulder COVID vaccinated X 4 ([employer]ent [employer]) Surgical History Surgery Date(Month/Year) Right below knee amputation 11/2018 left SFA to left medial plan tar artery bypass with left common femoral endarterectomy, left leg angiogram 08/2019 Multiple endovascular procedures to both lower extremities Hospitalization History Reason Date(Month/Year) left lower extremity Bypass 08/2019 right BKA 11/2018
[2025-02-12 14:12] VITALS: BMI 21.0
== END 2025-02-05 12:47 | disposition home or self-care (01) ==
LOC: HO.ENCR 11:37
PROVIDERS: Visit Provider Dietitian, Registered
DX: E11.43 Type 2 diabetes mellitus with diabetic autonomic (poly)neuropathy (principal)

== ENCOUNTER → 2025-02-05 11:36 | Outpatient (BNVA) | payer MEDICARE, SELFPAY | PROVIDERS: Visit Provider Dietitian, Registered | DX: E11.43 Type 2 diabetes mellitus with diabetic autonomic (poly)neuropathy (principal) | CPT/HCPCS: 97802 ==